=== PATIENT | male | born 1945 | race Caucasian/White ===

== ENCOUNTER 2020-11-26 09:20 | Day surgery (SDC) | payer MEDICARE, MEDICAID, SELFPAY ==
--- NOTE | 2020-11-23 11:13 | NURSING ---
spoke with Sabine, caregiver at [facility] [phone]. Sabine reported pt's med list. Sabine reported that pt takes meds with water. Sabine hs been instructed to give pt his propanolol and his norvasc in a.m. before surgery. Sabine has been instructed to fax pt's health info K[facility]IL[facility].
[2020-11-26] VITALS (8 sets, daily range): BP systolic 116–168; BP diastolic 48–64; PULSE 49–55; RESP 16–18; TEMP 36.1–36.4; O2SAT 96–99; BMI 23.5
[2020-11-26] MEDS: Lactated Ringers 1,000 ML 100 ML IV (10:29)
--- NOTE | 2020-11-26 11:11 | RAD_ITS ---
STUDY: X-RAY - LUMBAR SPINE REASON FOR EXAM: Male, 74 years old. MEDIAL BRANCH NERVE BLOCK, L3-S1,RIGHT TECHNIQUE: 4 fluoroscopic intraprocedural images view(s) of the lumbar spine were obtained. COMPARISON: None FINDINGS/ RAD/Lumbar Spine 2 or 3 Views IMPRESSION: Fluoroscopic intraprocedural images of a medial branch nerve block L3-S1 were performed. 4 different needle placements are visualized along the left lateral aspect of the lumbosacral spine. Osseous structures appear intact. Please see procedure report for full details. Electronically Signed: Rei Sexton MD at 20:34 EDT Tel , Service support ,
[2020-11-26] MEDS: Lidocaine 1% (5 ml sdv) 5 ML Vial (11:15)
[2020-11-26] MEDS: Bupivacaine 0.25% 30 ML Vial (11:15)
--- NOTE | 2020-11-26 16:47 | PCM.OPRPT ---
Report of Operation Date of Procedure: 11/26/20 Description of Surgical Findings:: PREOPERATIVE DIAGNOSIS: Lumbosacral spondylosis, lumbosacral degenerative disc disease, lumbar facet arthropathy POSTOPERATIVE DIAGNOSIS: Lumbosacral spondylosis, lumbosacral degenerative disc disease, lumbar facet arthropathy PROCEDURE PERFORMED: Right-sided diagnostic lumbar medial branch block, L3, L4, L5, and S1. ANESTHESIA: MAC. BLOOD LOSS: Minimal. COMPLICATIONS: None. DESCRIPTION OF PROCEDURE: History and physical of today was reviewed. Risks and benefits of the procedure were explained. The patient understood and agreed to proceed. Informed consent was obtained. IV inserted per routine protocol. The patient was taken to the operating room and placed in the prone position with a pillow positioned underneath the abdomen. The right side of her lower back was prepped and draped in a sterile fashion using iodine x3. Under fluoroscopy on oblique view, the L3 through S1 vertebral bodies were visualized. The skin and subcutaneous tissue was anesthetized with approximately 5 mL of 1% lidocaine using a 25-gauge regular needle. Under direct visualization with fluoroscopy, at approximately 25-degree angle starting on the right L3, ending on the right S1, passing through the L4 and L5, using a 22-gauge 3-1/2-inch spinal needle, the needle was advanced via the skin. The tip of the needle was maneuvered and directed towards the superior medial gutter of the transverse process at the vicinity of the medial branch. Once tip of the needle was in contact with the bone, the needle was pulled approximately 2 mm off the bone. After negative aspiration of blood or CSF and confirmation on AP as well as oblique view, a total of 8 mL of preservative-free 0.25% Marcaine was injected in divided doses between those four levels. The needles were then removed intact. The patient experienced no sign or symptoms of intrathecal or intravascular injection. The patient experienced no paresthesia. The procedure was completed without any apparent difficulty or any complications. The patient appeared to tolerate it well. ASSESSMENT AND PLAN: This is a 74-year-old male with lumbosacral spondylosis lumbosacral degenerative disc disease, lumbar facet arthropathy status post right-sided diagnostic medial branch block at L3-S1, patient will continue his current medications, patient will follow in approximately 1 week for reevaluation.
== END 2020-11-26 12:29 | disposition home or self-care (01) ==
LOC: SDC 09:27 → AC 10:06
PROVIDERS: Referring Provider Anesthesiology Pain Medicine; Visit Provider Anesthesiology Pain Medicine
PROC: 3E0T3BZ Introduction of Anesthetic Agent into Peripheral Nerves and Plexi, Percutaneous Approach (ICD-10-PCS; CPT 64493; principal; 2020-11-26 10:25)
DX: M47.817 Spondylosis without myelopathy or radiculopathy, lumbosacral region (principal); M51.37 Other intervertebral disc degeneration, lumbosacral region; M46.96 Unspecified inflammatory spondylopathy, lumbar region; G89.29 Other chronic pain; M19.90 Unspecified osteoarthritis, unspecified site; F41.9 Anxiety disorder, unspecified; Z99.3 Dependence on wheelchair; Z79.82 Long term (current) use of aspirin; Z79.899 Other long term (current) drug therapy; Z86.73 Personal history of transient ischemic attack (TIA), and cerebral infarction without residual deficits
CPT/HCPCS: 64493; 64494; 64495; 64483; 72100; J7120

== ENCOUNTER 2020-12-24 09:31 | Day surgery (SDC) | payer MEDICARE, MEDICAID, SELFPAY ==
[2020-11-26 10:11] VITALS: BMI 23.5
[2020-12-24] VITALS (10 sets, daily range): BP systolic 114–159; BP diastolic 52–61; PULSE 48–55; RESP 16; TEMP 36.2–36.6; O2SAT 97–100; BMI 22.6
--- NOTE | 2020-12-24 10:50 | RAD_ITS ---
PROCEDURE: Caudal block. DATE OF EXAMINATION: 12/24/2020 INDICATION: Male, 75 years old. Chronic low back pain. FLUOROSCOPY TIME (if supplied): (2 seconds) minutes/seconds. One image was obtained. RAD/Fluor Guidance for Spine Inj IMPRESSION: Intraoperative imaging provided for caudal block. Electronically Signed: Hari Lawton MD at 15:52 EDT , Service support ,
[2020-12-24] MEDS: Lactated Ringers 1,000 ML 100 ML IV (11:18)
[2020-12-24] MEDS: MethylPREDNISolone Acetate 80 MG/ML Vial (11:50)
[2020-12-24] MEDS: Lidocaine 1% (5 ml sdv) 5 ML Vial (11:50)
[2020-12-24] MEDS: Bupivacaine 0.5% PF 10 ML VIAL (11:50)
--- NOTE | 2020-12-24 12:27 | OP.PCM_ITS ---
Report of Operation Date of Procedure: 12/24/20 Pre-Operative Diagnosis: Lumbosacral radiculopathy, lumbosacral degenerative di sc disease, lumbosacral spinal stenosis Post-Operative Diagnosis: Lumbosacral radiculopathy, lumbosacral degenerative disc disease, lumbosacral spinal stenosis Surgery/Procedure Performed:: Caudal epidural steroid injection under fluoroscopic guidance Type of Anesthesia: MAC Estimated Blood Loss (mL): Minimal Description of Procedure: DESCRIPTION OF PROCEDURE: History and physical of today was reviewed. Risks and benefits of the procedure were explained. The patient understood and agreed to proceed. Informed consent was obtained. IV inserted per routine protocol. The patient was taken to the operating room and placed in the prone position with a pillow positioned underneath the abdomen. The lower back and tailbone area was prepped and draped in a sterile fashion using iodine x3. Under fluoroscopy guidance on a lateral view, the caudal space was identified. The skin and subcutaneous tissue was anesthetized with approximately 3 mL of 1% lidocaine using a 25-gauge regular needle. Under direct visualization with fluoroscopy, using a 22-gauge 3-1/2-inch spinal needle, the needle was advanced via the skin through the sacral hiatus. The tip of the needle was passed through the sacrococcygeal ligament and advanced to approximately S4 area. After negative aspiration of blood or CSF, a total of 3 mL of contrast was injected to confirm correct placement of the needle as well as cephalad spread. The spread was followed to approximately L5 area. After confirmation on AP as well as lateral view and repeated negative aspiration, a total of 15 mL of preservative-free 0.125% Marcaine with 80 mg of Depo-Medrol was injected easily. The needle was then removed intact. The patient experienced no sign or symptoms of intrathecal or intravascular injection. The patient experienced no paresthesia. The procedure was completed without any apparent difficulty or any complications. The patient appeared to tolerate it well. ASSESSMENT AND PLAN: This is a 75-year-old male with lumbosacral radiculopathy, lumbosacral degenerative disc disease, lumbosacral spinal stenosis status post caudal epidural steroid injection, patient will continue his current medications, patient will follow in approximately 2 weeks for reevaluation. Complications None
== END 2020-12-24 13:41 | disposition home or self-care (01) ==
LOC: SDC 09:36 → AC 10:14
PROVIDERS: Referring Provider Anesthesiology Pain Medicine; Visit Provider Anesthesiology Pain Medicine
PROC: 3E0S3BZ Introduction of Anesthetic Agent into Epidural Space, Percutaneous Approach (ICD-10-PCS; CPT 62282; principal; 2020-12-24 10:45)
DX: M51.17 Intervertebral disc disorders with radiculopathy, lumbosacral region (principal); M48.07 Spinal stenosis, lumbosacral region; G89.29 Other chronic pain; M19.90 Unspecified osteoarthritis, unspecified site; M81.0 Age-related osteoporosis without current pathological fracture; I10 Essential (primary) hypertension; F32.9 Major depressive disorder, single episode, unspecified; F41.9 Anxiety disorder, unspecified; F17.210 Nicotine dependence, cigarettes, uncomplicated; Z99.3 Dependence on wheelchair; Z79.82 Long term (current) use of aspirin; Z79.899 Other long term (current) drug therapy; Z86.73 Personal history of transient ischemic attack (TIA), and cerebral infarction without residual deficits
CPT/HCPCS: 01992; 62323; 64483; 77003; J7120; J3490

== ENCOUNTER 2021-03-01 17:01 | Inpatient (IN) | payer MEDICARE, MEDICAID, SELFPAY ==
[2021-03-01 17:03] VITALS: BP 143/73; PULSE 80; RESP 18; TEMP 36.7; O2SAT 99; BMI 30.3
--- NOTE | 2021-03-01 17:45 | RAD_ITS ---
STUDY: X-RAY - PELVIS AND LEFT HIP REASON FOR EXAM: Male, 75 years old. injury TECHNIQUE: 3 views of the pelvis and hip. COMPARISON: None. FINDINGS: There is nondisplaced left greater trochanter fracture. Femoral head and neck are intact and the hip is located. Remainder of the pelvis is normal. RAD/HIP, UNI W/ Pelvis 2-3 Views IMPRESSION: Acute left greater trochanter fracture. Electronically Signed: Olga Bond MD at 19:02 EDT Tel , Service support ,
[2021-03-01] MEDS: fentaNYL 100 MCG/2 ML Ampul 50 MCG IM (17:52)
--- NOTE | 2021-03-01 18:52 | EDS_ITS ---
HPI History of Present Illness Chief Complaint: Lower Extremity Injury Informant: patient Narrative Narrative: Patient presents by EMS from assisted living for increasing hip pain today. Mechanical fall 4 days ago after tripping over his cat. He landed on carpeted floor. No head injuries. Ambulates behind a wheelchair for years now. States today pain increased therefore called EMS. Denies any history of fractures. Denies any anticoagulation medications. [facility] Medical History (Updated 03/01/21 @ 22:13 by Junior Mock) Anxiety Arthritis Back pain Back pain due to injury CKD (chronic kidney disease) Delusional disorder Dementia Depression High cholesterol HTN (hypertension) Insomnia Muscle weakness Renal disease Smoker Stroke/cerebrovascular accident Uses wheelchair Home Medications acetaminophen 650 mg PO Q4H PRN 11/23/20 [History Last Taken 02/28/21 15:00] alendronate 70 mg PO TH 11/23/20 [History Last Taken 02/28/21] amlodipine [Norvasc] 10 mg PO DAILY 11/23/20 [History Last Taken 03/01/21] buspirone 5 mg PO BID 11/23/20 [History Last Taken 03/01/21] melatonin 10 mg PO QHS 11/23/20 [History Last Taken 02/28/21] paroxetine HCl 30 mg PO DAILY 11/23/20 [History Last Taken 03/01/21] propranolol 40 mg PO DAILY 11/23/20 [History Last Taken 03/01/21] rosuvastatin 20 mg PO DAILY 11/23/20 [History Last Taken 03/01/21] aspirin 81 mg PO DAILY 03/01/21 [History Last Taken 03/01/21] multivitamin [Daily-Jerry] 1 tab PO DAILY 03/01/21 [History Last Taken 03/01/21] Allergy/AdvReac Type Severity Reaction Status Date / Time No Known Allergies Allergy Verified 03/01/21 17:06 Family History (Updated 03/01/21 @ 20:[address] Clarissa Osborn MD) Mother Cancer Father Cancer Surgical History (Updated 03/01/21 @ 20:[address] Clarissa Osborn MD) S/P appendectomy Social History (Updated 03/01/21 @ 20:[address] Clarissa Osborn MD) housing: assisted living facility Smoking Status: Current every day smoker tobacco type: cigarettes Smoking packs per day: 1 Smoking cigarettes per day: 20.0 Years smoked: 58 Smoking pack-years: 58.00 alcohol intake: never substance use type: does not use ROS ROS ED Constitutional Constitutional ED: Denies chills, fever(s) or sweats Eyes Eyes: Denies change in vision ENT ENT ED: Denies dysphagia or sore throat Cardiovascular Cardiovascular: Denies chest pain, leg edema, palpitations or racing heartbeat Respiratory/Chest Respiratory/Chest: Denies cough, dyspnea or dyspnea on exertion Gastrointestinal Gastrointestinal: Denies abdominal pain, diarrhea, nausea or vomiting Genitourinary Genitourinary ED: Denies dysuria, hematuria or urinary frequency Musculoskeletal Musculoskeletal: Reports arthralgias; Denies back pain, extremity pain or neck pain Integumentary Denies rash or wounds Neurologic Neurologic: Denies headache(s), paresthesias or weakness EXAM Physical Exam Const Vital Signs: 03/01/21 17:03 03/01/21 19:08 Temperature 98.1 F Temperature Source Oral Pulse Rate 80 73 Respiratory Rate 18 16 Blood Pressure 143/73 H 148/73 H Blood Pressure Mean 96 98 Pulse Ox 99 98 Oxygen Delivery Method Room Air Room Air Positive unkempt General Appearance ED: unkempt and NAD HEENT Reports moist mucous membranes normocephalic and atraumatic Eyes PERRL, EOMs intact bilaterally and conjunctivae normal General Eye ED: Yes normal appearance of both eyes Neck no lymphadenopathy and supple General: Negative for tenderness Chest Wall Chest: Negative for tenderness Resp normal respiratory effort and normal air movement Effort and Inspection: symmetric chest movement; Negative for respiratory distress Cardio regular rate, regular rhythm and no murmurs Peripheral Pulses: pulses 2+ throughout GI normal to inspection, nondistended, normoactive bowel sounds and non-tender Palpation: Negative for guarding or rebound tenderness present Back/Spine no CVA tenderness and no thoracic nor lumbar tenderness Back/Spine Narrative: No midline neck back lumbar tenderness. Extremity Extremity Narrative: No shortening or rotation of the left lower extremity. Tender palpation lateral greater trochanteric. Skin intact. Mild pain with logroll. Neurovascular intact distally. General Extremety ED: Negative for edema or tenderness General Extremity: Negative for edema Neuro oriented x3 and no sensory deficits noted Sensorium / Orientation: awake and alert Psych Appearance: unkempt Skin no rashes or lesions noted and no wounds MDM MDM MDM Narrative Medical decision making narrative: Patient given IM fentanyl. there is no shortening or rotation. X-ray left hip pelvis obtained per radiology nondisplaced intertrochanteric fracture. Preop clearance labs EKG chest x-ray all obtained. White count returned at 15.9. Which add a UA. Additional pain medicines given. I spoke with orthopedics on-call Dr. Child, states he will see the patient in the morning. I spoke with hospitalist Dr. Osborn for admission. Shortly after admission, received call back from Dr. child partner who will see the patient request CT scan for further evaluation. States reviewed more concerning for greater trochanteric fracture. Discussed that he will evaluate the patient in the morning after CT scan. Lab Data Attestation: I reviewed the patient's lab results. Labs: Laboratory Results - last 24 hr 03/01/21 03/01/21 03/01/21 19:15 19:15 19:15 WBC 15.9 H RBC 4.74 Hgb 14.3 Hct 43.7 MCV 92.2 MCH 30.2 MCHC 32.7 RDW Std Deviation 45.9 H RDW Coeff of Cindy 13.4 Plt Count 290 MPV 10.4 Immature Gran % (Auto) 0.700 Neut % (Auto) 82.1 H Lymph % (Auto) 10.3 L Atkinson % (Auto) 6.4 Eos % (Auto) 0.1 Baso % (Auto) 0.4 Absolute Neuts (auto) 13.0 H Absolute Lymphs (auto) 1.64 Nucleated RBC % 0 PT INR APTT Sodium 139 Potassium 3.7 Chloride 104 Carbon Dioxide 23.0 Anion Gap 12 BUN 19 H Creatinine 1.61 H Estim Creat Clear Calc 28.42 Est GFR (MDRD) Af Amer 54 L Est GFR (MDRD) Non-Af 44 L BUN/Creatinine Ratio 11.8 Glucose 110 H Calcium 9.4 Magnesium Blood Type A POSITIVE Antibody Screen NEGATIVE 03/01/21 03/01/21 19:15 20:00 WBC RBC Hgb Hct MCV MCH MCHC RDW Std Deviation RDW Coeff of Cindy Plt Count MPV Immature Gran % (Auto) Neut % (Auto) Lymph % (Auto) Atkinson % (Auto) Eos % (Auto) Baso % (Auto) Absolute Neuts (auto) Absolute Lymphs (auto) Nucleated RBC % PT 13.5 INR 1.1 APTT 28.8 Sodium Potassium Chloride Carbon Dioxide Anion Gap BUN Creatinine Estim Creat Clear Calc Est GFR (MDRD) Af Amer Est GFR (MDRD) Non-Af BUN/Creatinine Ratio Glucose Calcium Magnesium 2.3 Blood Type Antibody Screen Radiography X-Ray: Left Hip, Read by ED Physician and Read by Radiologist Diagnostic Testing: Clinical Impression(s) from Imaging Studies Hip/Pelvis X-Ray 03/01/21 17:45 IMPRESSION: Acute left greater trochanter fracture. Electronically Signed: Olga Bond MD at 19:02 EDT Tel , Service support , Chest X-Ray 03/01/21 19:40 IMPRESSION: No acute findings in the chest. Electronically Signed: Jimy Dyson MD at 21:16 EDT Tel , Service support , EKG Initial EKG: Attestation: I personally reviewed and interpreted this EKG as follows: Comments: Sinus rate of 78, no ST or T wave changes. Discharge Plan Dx/Rx/DC Orders Clinical Impression: Closed fracture of left hip, Fall Disposition Disposition: Acute Care [facility] Discharge Date/Time: 03/01/21 21:28
[2021-03-01 19:08] VITALS: BP 148/73; PULSE 73; RESP 16; O2SAT 98
--- NOTE | 2021-03-01 19:40 | RAD_ITS ---
EXAM: XR Chest, 1 View CLINICAL INDICATION: 75 years old, Male; preop TECHNIQUE: Frontal view of the chest. This report was created using [employer] report generation technology. COMPARISON: None. FINDINGS: Lungs and pleural spaces: Blunting of the right costophrenic angle may be due to a small amount of fluid or pleural thickening. No pneumothorax. Heart: Unremarkable. Cardiac silhouette not enlarged. Mediastinum: Central airways and mediastinal contour are unremarkable. Bones/joints: Unremarkable. Soft tissues: Unremarkable. RAD/Chest 1 View (Portable) IMPRESSION: No acute findings in the chest. Electronically Signed: Jimy Dyson MD at 21:16 EDT Tel , Service support ,
--- NOTE | 2021-03-01 19:40 | EKG12_ITS ---
Test Reason : LE Blood Pressure : / mmHG Vent. Rate : 078 BPM Atrial Rate : 078 BPM P-R Int : 144 ms QRS Dur : 078 ms QT Int : 370 ms P-R-T Axes : 069 039 096 degrees QTc Int : 421 ms Normal sinus rhythm Nonspecific ST and T wave abnormality Abnormal ECG Confirmed by CATY ESPINOZA, KERVIN ([id number]), material expeditor FAUSTO CORBETT ([id number]) on 03/05/2021 10:42:06 AM Referred By: TL Confirmed By:KERVIN BYRNE MD
[2021-03-01 20:00] LABS: Absolute Lymphocyte Count 1.64 X10^3/uL (0.83-4.51); Basophil# 0.07 X10^3/uL; Basophil% 0.4 % (0-1); Eosinophil# 0.02 X10^3/uL; Eosinophils% 0.1 % (0-5); Hematocrit 43.7 % (40-54); Hemoglobin 14.3 g/dL (13.0-16.5); Lymphocyte # 1.64 X10^3/ul (0.83-4.51); Lymphocyte % 10.3 % (19-41); Mean Corp Hgb Conc 32.7 g/dL (32-36); Mean Corpuscular Hgb 30.2 pg (27.0-32.0); Mean Corpuscular Volume 92.2 fL (80-94); Mean Platelet Vol. 10.4 fl (6.2-12.0); Monocyte# 1.01 X10^3/uL; Monocyte% 6.4 % (0-10); NRBC Flagged by Analyzer 0 % (0-5); Neutrophil # 13.01 X10^3/uL (2.7-7.7); Neutrophil % 82.1 % (47-70); Platelet Count 290 K/mm3 (150-450); RBC Distribution Width CV 13.4 % (11.6-14.6); RBC Distribution Width SD 45.9 fl (35.1-43.9); Red Blood Count 4.74 M/mm3 (4.6-6.2); White Blood Count 15.9 K/mm3 (4.4-11.0)
--- NOTE | 2021-03-01 20:10 | HP.PCM.HOS_ITS ---
HPI - General General Date of Admission: 03/01/21 Date of Service: 03/01/21 Chief Complaint: Recent fall, worsening L hip pain, debility. HPI Narrative The patient is a 75 y/o M w/ PMHx: Obesity, CKD stage III unclear subtype, Dementia unclear type with unclear behavioral disturbance history, HTN, HLD, Chronic back pain, Anxiety and Depression, Hx CVA, Wheelchair dependent, Tobacco use who presents to the [facility] ED on 03/01/21 with history of unfortunate fall, tripped over his cat at assisted living ~ 4 days prior with worsening pain, d ebility with no head trauma or LOC, initially able to walk with wheelchair but having notable difficulty prompting ED evaluation. He report pain 10 out of 10. He notes even recently when he attempts to move in his sleep he has been awoken with severe pain pending on the movement he makes. Work-up in the ED included T 98.1, heart rate 80, BP 143/73, respiratory rate 18, 99% on room air, plain film of the left hip and pelvis with a nondisplaced left greater trochanteric fracture, CBC w/ WBC 15.9, Hgb 14.3, Plts 290 with L shift, coags will, BMP BUN/creatinine 19/1.61, glucose 110, UA pending upon evaluation, type and screen per ED. ED discussed case with Orthopedic surgeon Dr. Child and his group who will be seeing the patient requested CT of the extremity which is pending upon evaluation. [facility] Medical History (Updated 03/01/21 @ 20:[address] Clarissa Osborn MD) Anxiety Arthritis Back pain CKD (chronic kidney disease) Delusional disorder Dementia Depression HTN (hypertension) Insomnia Muscle weakness Smoker Stroke/cerebrovascular accident Uses wheelchair Home Medications acetaminophen 650 mg PO Q4H PRN 11/23/20 [History Last Taken 02/28/21 15:00] alendronate 70 mg PO TH 11/23/20 [History Last Taken 02/28/21] amlodipine [Norvasc] 10 mg PO DAILY 11/23/20 [History Last Taken 03/01/21] buspirone 5 mg PO BID 11/23/20 [History Last Taken 03/01/21] melatonin 10 mg PO QHS 11/23/20 [History Last Taken 02/28/21] paroxetine HCl 30 mg PO DAILY 11/23/20 [History Last Taken 03/01/21] propranolol 40 mg PO DAILY 11/23/20 [History Last Taken 03/01/21] rosuvastatin 20 mg PO DAILY 11/23/20 [History Last Taken 03/01/21] aspirin 81 mg PO DAILY 03/01/21 [History Last Taken 03/01/21] multivitamin [Daily-Jerry] 1 tab PO DAILY 03/01/21 [History Last Taken 03/01/21] Allergy/AdvReac Type Severity Reaction Status Date / Time No Known Allergies Allergy Verified 03/01/21 17:06 Family History (Updated 03/01/21 @ 20:[address] Clarissa Osborn MD) Mother Cancer Father Cancer Surgical History (Updated 03/01/21 @ 20:[address] Clarissa Osborn MD) S/P appendectomy Social History (Updated 03/01/21 @ 20:[address] Clarissa Osborn MD) housing: assisted living facility Smoking Status: Current every day smoker tobacco type: cigarettes Smoking packs per day: 1 Smoking cigarettes per day: 20.0 Years smoked: 58 Smoking pack-years: 58.00 alcohol intake: never substance use type: does not use ROS ROS Narrative Admission Review of Systems: CONSTITUTIONAL: No weight loss, fever, chills, + weakness or fatigue. HEENT: Eyes: No visual loss, blurred vision, double vision or yellow sclerae. Ears, Nose, Throat: No hearing loss, sneezing, congestion, runny nose or sore throat. SKIN: No rash or itching, lesions, wounds. CARDIOVASCULAR: No chest pain, chest pressure or chest discomfort, palpitations, edema, orthopnea, syncopal events. RESPIRATORY: No shortness of breath, cough or sputum, wheezing, hemoptysis. GASTROINTESTINAL: No anorexia, nausea, vomiting or diarrhea, abdominal pain, melena, BRBPR. GENITOURINARY: No dysuria, frequency, urgency or retention. NEUROLOGICAL: + Chronic UE tremors, chronic radiculopathy/claudication pain, No headache, dizziness, syncope, paralysis, ataxia, change in bowel or bladder control, seizure. MUSCULOSKELETAL: + muscle, back pain, joint pain or stiffness. HEMATOLOGIC: No anemia, bleeding or bruising. LYMPHATICS: No enlarged nodes. No history of splenectomy. PSYCHIATRIC: + history of depression or anxiety. ENDOCRINOLOGIC: No reports of sweating, cold or heat intolerance. No polyuria or polydipsia. ALLERGIES: No history of asthma, hives, eczema or rhinitis. Vital Signs Vital Signs Vital Signs: 03/01/21 17:03 03/01/21 19:08 Temperature 98.1 F Temperature Source Oral Pulse Rate 80 73 Respiratory Rate 18 16 Blood Pressure 143/73 H 148/73 H Blood Pressure Mean 96 98 Pulse Ox 99 98 Oxygen Delivery Method Room Air Room Air Weight Weight: 160 lb 7.944 oz Body Mass Index (BMI) 30.3 Physical Exam Narrative Physical Examination: General: Awake, alert, oriented x 3 including self, place and recent events, remains cooperative, laying in the ED bed, notes uncomfortable. Skin: Normal color, normal turgor, no icterus, no cyanosis. HEENT: AT/NC, EOMI, PERRLA, mildly dry MM, no carotid bruits or JVD noted. Lungs: Diminished, greater bases, moderate effort, no rales, ronchi or wheezing. Heart: Regular rate and rhythm; no gallop, rub audible. Abdomen: Soft, NTTP, ND, normal BS, no HSM. Extremities: No cyanosis, no clubbing, no edema. Peripheral pulses intact. Neurological: Patient awake, alert, oriented as noted, cognitive function appears likely baseline intact with reported in records underlying history of dementia; pupils equally reactive to light and accommodation, cranial nerves II- XII grossly normal, moving all 4 extremities except expected limitations given recent mechanical fall with left hip fracture, no focal deficits, strength accordingly severely globally decreased secondary to acute presentation. Psychiatric: Affect appears mildly uncomfortable otherwise normal, no acute evidence of depressive or anxiety feelings. Results Lab / Micro Data Result Diagrams: 03/01/21 19:15 03/01/21 19:15 Labs: Laboratory Results - last 24 hr 03/01/21 19:15: WBC 15.9 H, RBC 4.74, Hgb 14.3, Hct 43.7, MCV 92.2, MCH 30.2, MCHC 32.7, RDW Std Deviation 45.9 H, RDW Coeff of Cindy 13.4, Plt Count 290, MPV 10.4, Immature Gran % (Auto) 0.700, Neut % (Auto) 82.1 H, Lymph % (Auto) 10.3 L, [place] % (Auto) 6.4, Eos % (Auto) 0.1, Baso % (Auto) 0.4, Absolute Neuts (auto) 13.0 H, Absolute Lymphs (auto) 1.64, Nucleated RBC % 0 Radiology Impression Hip/Pelvis X-Ray 03/01/21 17:45 IMPRESSION: Acute left greater trochanter fracture. Electronically Signed: Olga Bond MD at 19:02 EDT Tel , Service support , Assessment & Plan Assessment/Plan (1) Closed fracture of left hip: QUALIFIERS: Encounter type: initial encounter Qualified Code(s): S72.002A - Fracture of unspecified part of neck of left femur, initial encounter for closed fracture (2) Fall: QUALIFIERS: Encounter type: initial encounter Qualified Code(s): W19.XXXA - Unspecified fall, initial encounter PLAN: The patient is a 75 y/o M w/ PMHx: Obesity, CKD stage III unclear subtype, Dementia unclear type with unclear behavioral disturbance history, HTN, HLD, Chronic back pain, Anxiety and Depression, Hx CVA, Wheelchair dependent, Tobacco use who presents to the [facility] ED on 03/01/21 with history of unfortunate fall, tripped over his cat at assisted living ~ 4 days prior with worsening pain, debility with no head trauma or LOC, initially able to walk with wheelchair but having notable difficulty prompting ED evaluation. 1. General debility, L hip pain s/p mechanical fall w/ nondisplaced left greater trochanteric fracture: Orthopedic surgery consulted from ED. Will admit to MS, maintain NPO after midnight, continue gentle IVFs, obtain TSH, Mag level, UA/UCx if appropriate, aranda placement as needed pre-operatively, monitor I/Os, frequent positioning, fall precautions, pain, anti-emetic regimen. PT/OT following operative intervention. CM consulted for discharge planning. NSQIP given underlying history of assisted living status and mild cognitive decline as well as routine pain management steroid injections although last 12/2020 and underlying history mildly above average risk. Pending EKG and CXR given tobacco use history without any reported COPD hx. If no marked findings or concerns would plan to transition to OR 03/01/21. 2. Dementia, unclear type with unclear behavioral disturbance history: Not on any specific regimen, complicates presentation, maintain on fall precautions, therapies and case management consulted as noted above. 3. Hypertension: Continue home regimen including propranolol, Norvasc with hold parameters as needed, PRN hydralazine. 4. Hyperlipidemia: We will continue patient home lovastatin regimen. 5. Anxiety and depression: Per records patient is following with the counseling center, will continue patient home BuSpar and paroxetine regimen. 6. Tobacco Abuse: Encouraged cessation, inpatient consultation per RT, NR if desired. 7. History CVA: Patient with L sided CVA history, continue aspirin, statin, hypertensive regimen as noted above with hold parameters as needed. 8. Chronic back pain with neurogenic claudication and lumbosacral radicu lopathy: Patient follows chronic pain management with routine epidural steroid injections, most recently noted 12/24/2020, encourage frequent positional changes, every 2 hours turns especially given limitations pending orthopedic surgery evaluation, fall precautions, therapies consulted following operative intervention as noted above. 9. Chronic Kidney Disease Stage III, unclear subtype: Admission BUN/Cr 19/1.61, disease reported in patient records, no clear baseline however, repeat CMP in AM. 10. DVT prophylaxis: SCDs, defer chemoprophylaxis for possible intervention, awaiting orthopedic surgery evaluation. 11. CODE status: Patient does not have healthcare power of supervisor sterile processing nor living will in place. His brother is his emergency contact. Discussed CODE status at length including difference between FULL code, DNR-CCA and DNR-CC status. Following discussions about the differences in these status, requested Full Code status. Advanced Care Planning Face to Face Time: 16 minutes. Charges/Coding Visit Charges Inpatient E&M: 99857 Init Hosp L3 Procedures Hospitalists Procedures: 52678 Advncd Care Plan 30 Min
[2021-03-01 20:12] LABS: Anion Gap 12 (5-15); BUN 19 mg/dL (7-18); BUN/Creat Ratio 11.8 RATIO (10-20); Calcium,Total 9.4 mg/dL (8.5-10.1); Chloride 104 mmol/L (98-107); Creatinine, Serum 1.61 mg/dL (0.70-1.30); EST Glomerular Filtration Rate 44 mL/min (>60); Est Glom Filt Rate - Afr Amer 54 mL/min (>60); Estimated Creatinine Clearance 28.42 ml/min; Glucose 110 mg/dL (74-106); Potassium 3.7 mmol/L (3.5-5.1); Sodium Level 139 mmol/L (136-145)
[2021-03-01] MEDS: fentaNYL 100 MCG/2 ML Ampul 50 MCG IV (20:13)
[2021-03-01 20:20] VITALS: BP 148/91; PULSE 72; RESP 18; TEMP 36.3; O2SAT 95
[2021-03-01 20:40] LABS: International Normalized Ratio 1.1; Prothrombin Time (Protime)PT. 13.5 SECONDS (11.7-14.9)
--- NOTE | 2021-03-01 20:40 | CT_ITS ---
EXAM: CT Pelvis Without Intravenous Contrast CLINICAL INDICATION: 75 years old, Male; fracture TECHNIQUE: Helically acquired images were obtained of the pelvis without intravenous contrast. This CT exam was performed using one or more of the following dose reduction techniques: automated exposure control, adjustment of the mA and/or kV according to patient size, and/or use of iterative reconstruction technique. This report was created using [employer] report [employer] Vantage technology. COMPARISON: None. FINDINGS: Bowel: Fecal retention in the rectum consistent with constipation and possible rectal impaction. Scattered diverticula in the colon. No diverticulitis. No bowel distention. Appendix: No evidence of acute appendicitis. Intraperitoneal space: Unremarkable. No ascites or other fluid collection. No free air. Bladder: Unremarkable. Reproductive: Unremarkable as visualized. No mass. Bones/joints: Displaced fracture of the left greater trochanter. No definite extension into the intertrochanteric region of the femur. No suspicious lytic or blastic abnormality. Soft tissues: Unremarkable. No pelvic wall hernia. Vasculature: Atherosclerotic disease. Lymph nodes: Unremarkable. No enlarged lymph nodes. CT/Pelvis without IV Contrast IMPRESSION: 1. Displaced fracture of the left greater trochanter. No definite extension into the intertrochanteric region of the femur. 2. Fecal retention in the rectum consistent with constipation and possible rectal impaction. Electronically Signed: Jimy Dyson MD at 21:33 EDT Tel , Service support ,
[2021-03-01 20:41] LABS: Partial Thromboplast Time 28.8 Seconds (24.1-36.2)
[2021-03-01 20:42] LABS: Magnesium 2.3 mg/dL (1.6-2.6)
--- NOTE | 2021-03-01 21:11 | ED.RN ---
prem hobbs made aware of admission
[2021-03-01 21:47] VITALS: BMI 30.3
[2021-03-01 22:14] VITALS: BP 153/73; PULSE 76; RESP 20; TEMP 36.6; O2SAT 97
[2021-03-01] MEDS: MELATONIN 10 MG TABLET PO (22:48)
[2021-03-01] MEDS: Morphine 2 MG/ML Syringe IV (22:49)
[2021-03-01] MEDS: busPIRone 5 MG Tablet PO (22:49)
[2021-03-01] MEDS: 0.9% Normal Saline 1,000 ML 100 ML IV (22:50)
[2021-03-01] MEDS: 0.9% Saline Lock 10 ML Syringe IV (22:53)
[2021-03-02] VITALS (14 sets, daily range): BP systolic 126–155; BP diastolic 42–78; PULSE 53–73; RESP 14–20; TEMP 36.2–37.1; O2SAT 91–100; BMI 29.7
[2021-03-02 00:04] LABS: Squamous Epithelial Cells - UA 0 SEEN /hpf (0-5)
[2021-03-02 00:05] LABS: Color, Urine Yellow (Yellow); Glucose, Dipstick Normal (Normal); Ketone-Dipstick 15 mg/dl (Negative); Leukocyte Esterase-Dipstick 25 /ul (Negative); Nitrite-Dipstick Negative (Negative); Occult Blood-Urine 10 /ul (Negative); Protein-Dipstick 100 mg/dl (Negative); Urine Bilirubin Dipstick Negative (Negative); Urine Clarity Clear (Clear); Urine Urobilinogen 1 mg/dl (Normal)
[2021-03-02 00:55] LABS: Bacteria RARE /hpf (None Seen); Mucous, Urine 1+ /hpf (<or=2+); Red Blood Cells-Urine 0-5 SEEN /hpf (0-5); White Blood Cells 5-10 SEEN /hpf (0-5)
[2021-03-02 00:56] LABS: Hyaline Cast 0-5 SEEN /lpf (0-5)
[2021-03-02] MEDS: BENZOCAINE/MENTHOL 1 LOZENGE MUCOUS MEM (01:50)
[2021-03-02] MEDS: Morphine 2 MG/ML Syringe IV ×4 (04:06→16:06)
--- NOTE | 2021-03-02 08:07 | CONS.ORTHO ---
HPI Consult Data Date of Consult: 03/02/21 HPI Narrative HPI Narrative: BERTRAND CONTE, is a 75 M who presents After mechanical fall at his assisted living facility where he resides. He states he tripped over his cat. Patient states the fall happened a week ago, however there are discrepancies in medical record that this may have happened approximately 4 days ago. He states he has been unable to ambulate and bear weight since the fall. He states he has not worked with a physical therapist yet. Denies fevers, chills, nausea or vomiting, chest pain or shortness of breath. Denies any other associated injury. Denies any presyncope or syncopal episodes related to the fall. Denies any antecedent hip or groin pain. [facility] Medical History (Updated 03/01/21 @ 22:13 by Junior Mock) Anxiety Arthritis Back pain Back pain due to injury CKD (chronic kidney disease) Delusional disorder Dementia Depression High cholesterol HTN (hypertension) Insomnia Muscle weakness Renal disease Smoker Stroke/cerebrovascular accident Uses wheelchair Home Medications acetaminophen 650 mg PO Q4H PRN 11/23/20 [History Last Taken 02/28/21 15:00] alendronate 70 mg PO TH 11/23/20 [History Last Taken 02/28/21] amlodipine [Norvasc] 10 mg PO DAILY 11/23/20 [History Last Taken 03/01/21] buspirone 5 mg PO BID 11/23/20 [History Last Taken 03/01/21] melatonin 10 mg PO QHS 11/23/20 [History Last Taken 02/28/21] paroxetine HCl 30 mg PO DAILY 11/23/20 [History Last Taken 03/01/21] propranolol 40 mg PO DAILY 11/23/20 [History Last Taken 03/01/21] rosuvastatin 20 mg PO DAILY 11/23/20 [History Last Taken 03/01/21] aspirin 81 mg PO DAILY 03/01/21 [History Last Taken 03/01/21] multivitamin [Daily-Jerry] 1 tab PO DAILY 03/01/21 [History Last Taken 03/01/21] Allergy/AdvReac Type Severity Reaction Status Date / Time No Known Allergies Allergy Verified 03/01/21 17:06 Family History (Updated 03/01/21 @ 20:[address] Clarissa Osborn MD) Mother Cancer Father Cancer Surgical History (Updated 03/01/21 @ 20:[address] Clarissa Osborn MD) S/P appendectomy Social History (Updated 03/01/21 @ 20:[address] Clarissa Osborn MD) housing: assisted living facility Smoking Status: Current every day smoker tobacco type: cigarettes Smoking packs per day: 1 Smoking cigarettes per day: 20.0 Years smoked: 58 Smoking pack-years: 58.00 alcohol intake: never substance use type: does not use ROS ROS Narrative 10 point review of systems obtained, negative unless otherwise noted in HPI Vital Signs Vital Signs Vital Signs: 03/01/21 17:03 03/01/21 19:08 03/01/21 20:20 Temperature 98.1 F 97.3 F L Temperature Source Oral Temporal Pulse Rate 80 73 72 Respiratory Rate 18 16 18 Respiratory Effort Respiratory Depth Respiratory Pattern Blood Pressure 143/73 H 148/73 H 148/91 H Blood Pressure Mean 96 98 110 Blood Pressure Source Blood Pressure Position Blood Pressure Location Pulse Ox 99 98 95 Oxygen Delivery Method Room Air Room Air Room Air 03/01/21 22:14 03/01/21 23:08 03/02/21 03:46 Temperature 98 F 98.4 F Temperature Source Oral Oral Pulse Rate 76 Respiratory Rate 20 H Respiratory Effort Normal Non-Labored Respiratory Depth Normal Respiratory Pattern Normal Blood Pressure 153/73 H Blood Pressure Mean 99 Blood Pressure Source Monitor Blood Pressure Position Semi-Fowlers Blood Pressure Location Left Arm Pulse Ox 97 Oxygen Delivery Method Room Air Room Air 03/02/21 05:40 03/02/21 05:44 Temperature 98.8 F Temperature Source Oral Pulse Rate 73 Respiratory Rate 20 H Respiratory Effort Normal Non-Labored Respiratory Depth Normal Respiratory Pattern Normal Blood Pressure 149/68 H Blood Pressure Mean 95 Blood Pressure Source Monitor Blood Pressure Position Semi-Fowlers Blood Pressure Location Right Arm Pulse Ox 98 Oxygen Delivery Method Room Air Room Air Weight Weight: 157 lb 3.033 oz Body Mass Index (BMI) 30.3 Physical Exam Narrative General -A&Ox3, NAD, appears stated age. Vital signs stable, afebrile. Respiratory -normal work of breathing, no intercostal retractions. CV -pulses regular, brisk capillary refill ?4 limbs. Abdomen-soft, nontender, nondistended. No guarding, rigidity, rebound tenderness. Musculoskeletal/neurologic -full range of motion nontender throughout bilateral upper extremities, right lower extremity with full sensation and strength in all dermatomes and myotomes. No midline cervical tenderness.Left lower extremity-no obvious deformity. Pain with logroll of the left lower extremity, positive heel strike, tolerates short arc range of motion of the hip. Tender to palpation along the greater trochanter. Nontender throughout the left knee femoral shaft, tibial shaft and left foot/ankle. Brisk capillary refill. Sensation intact light touch L3-S1 dermatomes. DF, PF, EHL intact. DP, PT 2+. Pelvis is stable, nontender. Skin is intact without lacerations, abrasions. No ecchymosis noted. Lab / Micro Data Result Diagrams: 03/01/21 19:15 03/01/21 19:15 Labs: Laboratory Results - last 24 hr 03/01/21 19:15: WBC 15.9 H, RBC 4.74, Hgb 14.3, Hct 43.7, MCV 92.2, MCH 30.2, MCHC 32.7, RDW Std Deviation 45.9 H, RDW Coeff of Cindy 13.4, Plt Count 290, MPV 10.4, Immature Gran % (Auto) 0.700, Neut % (Auto) 82.1 H, Lymph % (Auto) 10.3 L, [place] % (Auto) 6.4, Eos % (Auto) 0.1, Baso % (Auto) 0.4, Absolute Neuts (auto) 13.0 H, Absolute Lymphs (auto) 1.64, Nucleated RBC % 0 03/01/21 19:15: Sodium 139, Potassium 3.7, Chloride 104, Carbon Dioxide 23.0, Anion Gap 12, BUN 19 H, Creatinine 1.61 H, Estim Creat Clear Calc 28.42, Est GFR (MDRD) Af Amer 54 L, Est GFR (MDRD) Non-Af 44 L, BUN/Creatinine Ratio 11.8, Glucose 110 H, Calcium 9.4 03/01/21 19:15: Blood Type A POSITIVE, Antibody Screen NEGATIVE 03/01/21 19:15: Magnesium 2.3 03/01/21 20:00: PT 13.5, INR 1.1, APTT 28.8 03/01/21 23:55: Urine Color Yellow, Urine Clarity Clear, Urine pH 6.0, Ur Specific [place] 1.020, Urine Protein 100 H, Urine Glucose (UA) Normal, Urine Ketones 15 H, Urine Occult Blood 10 H, Urine Nitrite Negative, Urine Bilirubin Negative, Urine Urobilinogen 1 H, Ur Leukocyte Esterase 25 H, Urine RBC 0-5 SEEN, Urine WBC 5-10 SEEN, Ur Squamous Epith Cells 0 SEEN, Urine Bacteria RARE, Hyaline Casts 0-5 SEEN, Urine Mucus 1+ Micro: Microbiology 03/01/21 19:45 Nasal Secretion SARS-CoV-2 Antigen (Rapid) - Final Radiology Impression Hip/Pelvis X-Ray 03/01/21 17:45 IMPRESSION: Acute left greater trochanter fracture. Electronically Signed: Olga Bond MD at 19:02 EDT Tel , Service support , Chest X-Ray 03/01/21 19:40 IMPRESSION: No acute findings in the chest. Electronically Signed: Jimy Dyson MD at 21:16 EDT Tel , Service support , Pelvis CT 03/01/21 20:40 IMPRESSION: 1. Displaced fracture of the left greater trochanter. No definite extension into the intertrochanteric region of the femur. 2. Fecal retention in the rectum consistent with constipation and possible rectal impaction. Electronically Signed: Jimy Dyson MD at 21:33 EDT Tel , Service support , Assessment & Plan Assessment/Plan (1) Closed fracture of left hip: QUALIFIERS: Encounter type: initial encounter Qualified Code(s): S72.002A - Fracture of unspecified part of neck of left femur, initial encounter for closed fracture PLAN: Patient has x-ray and CT findings of a mildly displaced left greater trochanter avulsion fracture. Clinically, occult nondisplaced intertrochanteric fracture is suspected. MRI is needed definitive diagnosis, as a greater trochanteric avulsion fracture can be managed nonoperatively typically with restricting hip abduction and progressive weightbearing. We will obtain an MRI of the left hip without contrast this morning. I will keep the patient n.p.o. until I am able to review the study. If nondisplaced intertrochanteric fracture is identified, we would likely proceed with left femur cephalomedullary nail fixation. This was discussed at length with the patient and he expressed understanding of the above plan. All questions answered to patient satisfaction. I will follow-up after MRI today. Thank you the consultation.
--- NOTE | 2021-03-02 08:09 | MRI_ITS ---
STUDY: MRI LEFT HIP REASON FOR EXAM: Male, 75 years old. r/o occult intertroch fracture TECHNIQUE: Standardized fat and water weighted pulse sequences were obtained in all 3 orthogonal planes. COMPARISON: X-ray 03/01/2021, CT 03/01/2021 FINDINGS: Normal hip joint without articular joint space narrowing. Normal acetabulum. Normal labrum. Normal femoral head. Acute nondisplaced fracture of the intertrochanteric left femur with avulsion of the greater trochanter. Hemorrhage and fluid dissects superiorly along the plane between the gluteus minimus in the gluteus medius muscles. Normal gluteus minimus, medius and iliopsoas tendons and distal insertions. There is no trochanteric, iliopsoas or iliopectineal bursitis. Normal superior and inferior pubic rami. Normal pubic symphysis. Normal ischial tuberosity. Normal origin of the hamstring tendons. Normal visualized iliac wing, sacroiliac joint, and sacral ala. Normal visualized soft tissue structures of the pelvis. MRI/Lower Ext Joint Only (Routine) IMPRESSION: Acute nondisplaced fracture of the intertrochanteric left femur with avulsion of the greater trochanter. Electronically Signed: Bang Silverman MD at 11:57 EDT Tel , Service support ,
[2021-03-02 08:34] LABS: Absolute Lymphocyte Count 2.33 X10^3/uL (0.83-4.51); Absolute Neutrophil Count 6.9 X10^3/uL (2.0-7.7); Basophil# 0.04 X10^3/uL; Basophil% 0.4 % (0-1); Eosinophil# 0.08 X10^3/uL; Eosinophils% 0.8 % (0-5); Hematocrit 40.7 % (40-54); Hemoglobin 13.2 g/dL (13.0-16.5); Lymphocyte # 2.33 X10^3/ul (0.83-4.51); Lymphocyte % 21.9 % (19-41); Mean Corp Hgb Conc 32.4 g/dL (32-36); Mean Corpuscular Hgb 29.9 pg (27.0-32.0); Mean Corpuscular Volume 92.1 fL (80-94); Mean Platelet Vol. 9.8 fl (6.2-12.0); Monocyte# 1.25 X10^3/uL; Monocyte% 11.8 % (0-10); NRBC Flagged by Analyzer 0 % (0-5); Neutrophil # 6.89 X10^3/uL (2.7-7.7); Neutrophil % 64.8 % (47-70); Platelet Count 257 K/mm3 (150-450); RBC Distribution Width CV 13.5 % (11.6-14.6); RBC Distribution Width SD 46.1 fl (35.1-43.9); Red Blood Count 4.42 M/mm3 (4.6-6.2); White Blood Count 10.6 K/mm3 (4.4-11.0)
[2021-03-02] MEDS: 0.9% Normal Saline 1,000 ML 100 ML IV ×2 (08:51→20:03)
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
[2021-03-02] MEDS: Propranolol 40 MG Tablet PO (09:01)
[2021-03-02] MEDS: amLODIPine 10 MG Tablet PO (09:01)
[2021-03-02 09:03] LABS: ALB/GLOB Ratio 0.9 RATIO (0.9-2.4); AST(SGOT) 12 U/L (15-37); Alanine Aminotransfer ALT/SGPT 18 U/L (16-61); Albumin, Serum 3.2 g/dL (3.2-5.0); Alkaline Phosphatase 79 U/L (45-117); Anion Gap 8 (5-15); BUN 18 mg/dL (7-18); BUN/Creat Ratio 16.5 RATIO (10-20); Calcium,Total 8.4 mg/dL (8.5-10.1); Chloride 105 mmol/L (98-107); Creatinine, Serum 1.09 mg/dL (0.70-1.30); EST Glomerular Filtration Rate 70 mL/min (>60); Est Glom Filt Rate - Afr Amer 84 mL/min (>60); Estimated Creatinine Clearance 41.98 ml/min; Globulin 3.7 g/dL (2.2-4.2); Glucose 99 mg/dL (74-106); Potassium 3.4 mmol/L (3.5-5.1); Protein, Total 6.9 g/dL (6.4-8.2); Sodium Level 139 mmol/L (136-145); Thyroid Stim Hormone (TSH) 2.69 uIU/mL (0.358-3.74)
--- NOTE | 2021-03-02 09:07 | PCS.PANDOC ---
PANDEMIC DOCUMENTATION INITIATED: Date: 12/24/2020 Time: 190
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
--- NOTE | 2021-03-02 11:16 | NURSING ---
pt is back from mri
--- NOTE | 2021-03-02 11:27 | PCM.PN.HOSP ---
Documented by User: Linda Castillo NP, TAR DISTRIBUTOR OPERATOR-C 03/02/21 11:44 Subjective Subjective Patient seen and examined. Reports pain controlled at this time, recently received pain medication. Would like to return to assisted living facility at discharge. Awaiting MRI results. Objective Data Objective Data Vital Signs: Vital Signs Temp Pulse Resp BP Pulse Ox 98.8 F 73 20 H 149/68 H 95 03/02/21 05:40 03/02/21 05:40 03/02/21 05:40 03/02/21 05:40 03/02/21 07:50 Oxygen Delivery Method Room Air Weight: 157 lb 3.033 oz Body Mass Index (BMI) 30.3 Intake & Output: Intake and Output for Last 24 Hours 02/28/21 03/01/21 03/02/21 23:59 23:59 23:59 Intake Total 1876.67 / 1876.67 Output Total 550 / 550 Balance 1326.67 / 1326.67 Lab / Micro Data Result Diagrams: 03/02/21 08:18 03/02/21 08:18 Labs: Laboratory Results - last 24 hr 03/01/21 19:15: WBC 15.9 H, RBC 4.74, Hgb 14.3, Hct 43.7, MCV 92.2, MCH 30.2, MCHC 32.7, RDW Std Deviation 45.9 H, RDW Coeff of Cindy 13.4, Plt Count 290, MPV 10.4, Immature Gran % (Auto) 0.700, Neut % (Auto) 82.1 H, Lymph % (Auto) 10.3 L, [place] % (Auto) 6.4, Eos % (Auto) 0.1, Baso % (Auto) 0.4, Absolute Neuts (auto) 13.0 H, Absolute Lymphs (auto) 1.64, Nucleated RBC % 0 03/01/21 19:15: Sodium 139, Potassium 3.7, Chloride 104, Carbon Dioxide 23.0, Anion Gap 12, BUN 19 H, Creatinine 1.61 H, Estim Creat Clear Calc 28.42, Est GFR (MDRD) Af Amer 54 L, Est GFR (MDRD) Non-Af 44 L, BUN/Creatinine Ratio 11.8, Glucose 110 H, Calcium 9.4 03/01/21 19:15: Blood Type A POSITIVE, Antibody Screen NEGATIVE 03/01/21 19:15: Magnesium 2.3 03/01/21 20:00: PT 13.5, INR 1.1, APTT 28.8 03/01/21 23:55: Urine Color Yellow, Urine Clarity Clear, Urine pH 6.0, Ur Specific [place] 1.020, Urine Protein 100 H, Urine Glucose (UA) Normal, Urine Ketones 15 H, Urine Occult Blood 10 H, Urine Nitrite Negative, Urine Bilirubin Negative, Urine Urobilinogen 1 H, Ur Leukocyte Esterase 25 H, Urine RBC 0-5 SEEN, Urine WBC 5-10 SEEN, Ur Squamous Epith Cells 0 SEEN, Urine Bacteria RARE, Hyaline Casts 0-5 SEEN, Urine Mucus 1+ 03/02/21 08:18: WBC 10.6, RBC 4.42 L, Hgb 13.2, Hct 40.7, MCV 92.1, MCH 29.9, MCHC 32.4, RDW Std Deviation 46.1 H, RDW Coeff of Cindy 13.5, Plt Count 257, MPV 9.8, Immature Gran % (Auto) 0.300, Neut % (Auto) 64.8, Lymph % (Auto) 21.9, [place] % (Auto) 11.8 H, Eos % (Auto) 0.8, Baso % (Auto) 0.4, Absolute Neuts (auto) 6.9, Absolute Lymphs (auto) 2.33, Nucleated RBC % 0 03/02/21 08:18: Sodium 139, Potassium 3.4 L, Chloride 105, Carbon Dioxide 26.0, Anion Gap 8, BUN 18, Creatinine 1.09, Estim Creat Clear Calc 41.98, Est GFR (MDRD) Af Amer 84, Est GFR (MDRD) Non-Af 70, BUN/Creatinine Ratio 16.5, Glucose 99, Calcium 8.4 L, Total Bilirubin 0.50, AST 12 L, ALT 18, Alkaline Phosphatase 79, Total Protein 6.9, Albumin 3.2, Globulin 3.7, Albumin/Globulin Ratio 0.9, TSH 2.69 Micro: Microbiology 03/01/21 19:45 Nasal Secretion SARS-CoV-2 Antigen (Rapid) - Final Radiography Diagnostic Testing: Radiology Impression Hip/Pelvis X-Ray 03/01/21 17:45 IMPRESSION: Acute left greater trochanter fracture. Electronically Signed: Olga Bond MD at 19:02 EDT Tel , Service support , Chest X-Ray 03/01/21 19:40 IMPRESSION: No acute findings in the chest. Electronically Signed: Jimy Dyson MD at 21:16 EDT Tel , Service support , Pelvis CT 03/01/21 20:40 IMPRESSION: 1. Displaced fracture of the left greater trochanter. No definite extension into the intertrochanteric region of the femur. 2. Fecal retention in the rectum consistent with constipation and possible rectal impaction. Electronically Signed: Jimy Dyson MD at 21:33 EDT Tel , Service support , Orbit X-Ray 03/02/21 08:55 IMPRESSION: No demonstrated metallic orbital foreign body. The patient is cleared for an MRI examination. Electronically Signed: Bang Silverman MD at 9:38 EDT Tel , Service support , Physical Exam Const alert, oriented x3 and no apparent distress Orientation / Consciousness: awake, oriented to person, oriented to place and oriented to time HEENT normocephalic and moist oral mucous membranes Eyes PERRL, EOMs intact bilaterally and conjunctivae normal Neck no lymphadenopathy Resp normal respiratory effort and clear to auscultation bilaterally Cardio regular rate, regular rhythm and no murmurs Peripheral Pulses: pulses 2+ throughout GI normal to inspection, nondistended, normoactive bowel sounds, non-tender and non-distended Extremity normal to inspection Skin no rashes or lesions noted Lesions: no lesions Rashes: no rashes Trauma: no lacerations or abrasions Neuro CN's II-XII intact bilaterally, no focal motor deficits, no sensory deficits noted and deep tendon reflexes 2+ bilaterally Psych mental status grossly normal and affect normal Assessment & Plan Assessment/Plan (1) Closed fracture of left hip: QUALIFIERS: Encounter type: initial encounter Qualified Code(s): S72.002A - Fracture of unspecified part of neck of left femur, initial encounter for closed fracture PLAN: 1. Left hip pain status post mechanical fall with mildly displaced left greater trochanter avulsion fracture versus intertrochanter fracture-MRI pending for further evaluation. Management per orthopedic medicine. N.p.o. pending read of MRI. PT/OT. As needed pain regimen. If OR is necessary, okay to proceed from a medical standpoint. 2. Acute kidney injury-resolved. 3. Hypertension-stable, continue propanolol, Norvasc. 4. Hyperlipidemia-continue statin. 5. Anxiety/depression-on BuSpar, paroxetine. 6. Tobacco dependence-encouraged cessation. 7. History of CVA-on aspirin, statin. 8. Chronic back pain-follows with pain management. 9. Dementia, unknown behavioral disturbance history-resides in assisted living facility. DVT prophylaxis-SCDs This patient was seen by SHAYNE Lamb under the supervision of Dr. Anderson. Documented by User: Dr. Johsnon Anderson MD 03/02/21 12:48 Objective Data Lab / Micro Data Result Diagrams: 03/02/21 08:18 03/02/21 08:18 Charges/Coding Addendum Addendum: Dr. Anderson: I personally reviewed the chart and examined the patient, and agree with the above findings. 75-year-old male presents from assisted living after mechanical fall. He was complaining of left hip pain, CT scan was inconclusive as to whether or not there is an intertrochanteric fracture versus an avulsion fracture so the lower extremity MRI was obtained today by orthopedic surgery, MRI demonstrates an acute nondisplaced fracture of the intertrochanteric left femur with an avulsion of the greater trochanter. Appreciate Ortho's assistance in this case. Visit Charges Inpatient E&M: 86616 Subs Hosp L2
[2021-03-02] MEDS: Potassium Chloride Oral Tablet 20 MEQ PO (11:50)
[2021-03-02] MEDS: 0.9% Saline Lock 10 ML Syringe IV ×5 (11:50→23:49)
--- NOTE | 2021-03-02 13:08 | RAD_ITS ---
HISTORY: PAIN, FX, ORIF EXAMINATION/TECHNIQUE: XR Hip Unilateral with Pelvis when performed; 1 View: COMPARISON: Left hip series 03/01/21 FINDINGS: Multiple fluoroscopic spot films performed intraoperatively show ORIF intertrochanteric fracture left femur. RAD/Hip 1 view with Pelvis IMPRESSION: ORIF intertrochanteric fracture left femur. at 1908 Reported and signed by: Geoff Moreland MD Electronically Signed: Geoff Moreland MD at 19:07 EDT Tel , Service support ,
[2021-03-02] MEDS: Cefazolin 2 GM in 0.9% Normal Saline 100 ML IV ×2 (14:00→22:43)
--- NOTE | 2021-03-02 14:45 | PCM.OPRPT ---
Problems Associated Problem List Diagnoses (1) Closed fracture of left hip: Report of Operation Date of Procedure: 03/02/21 Description of Surgical Findings:: Preoperative diagnosis: Left nondisplaced intertrochanteric femur fracture Postoperative diagnosis: Left nondisplaced intertrochanteric femur fracture Procedure: Treatment of intertrochanteric hip fracture with intramedullary nail left femur Surgeon: Johnson Tovar DO Anesthesia: General endotracheal Anesthesiologist: Dr. Ferrell Complications: None Drains: None Estimated blood loss: 150 cc Urinary output: Per anesthesia record IV fluids: Per anesthesia record Specimens: None Surgical implants: [place] Gamma3 Cephalomedullary Nail 125 degree 11 mm x 180 mm left, 10.5 mm x 110 mm lag screw, Interlocking screws 5 mm x 37.5 mm Surgical indications: This is a 75-year-old female who sustained a ground-level fall at his assisted living facility several days ago after he tripped over his cat and landed on his left side. He was unable to bear weight for several days. X-rays in the [facility] emergency department 03/01/2021 revealed a minimally displaced greater trochanteric avulsion fracture. CT was obtained that evening to evaluate for occult intertrochanteric fracture. CT was benign for intertrochanteric fracture. I recommended a MRI the following morning today 03/02/2021 after examining the patient, as he had findings consistent with a intertrochanteric femur fracture, suspected occult. MRI was obtained this morning and confirmed the diagnosis of occult intertrochanteric femur fracture. I recommended operative intervention in the form of left femur cephalomedullary nail fixation. I discussed the procedure in detail with the patient. Including its risks, benefits, and alternatives. The risks of the surgery included bleeding, infection, loss of life or limb, malunion, nonunion, damage to vital structures, neurovascular injury, failure of orthopedic hardware, need for additional surgery, persistent pain or disability, risk of anesthesia. Patient expressed understanding of these risks and wished to proceed with surgery. Blood consent was also obtained. Description of procedure: Patient was seen in preoperative holding area. He was identified by name, medical record number, date of . The operative extremity was marked with a surgical marker. We confirmed informed consent with the patient and all questions were answered to his satisfaction. Patient was brought to the operative suite, general anesthesia was administered by the anesthesia staff. Endotracheal tube placed. After securing the tube, patient was transferred to a fracture table with all bony prominences being well-padded. A perineal post was placed to secure the patient on the table. We then applied a ski boot which was well-padded to the operative extremity. The well leg was dropped into extension and secured to the axial post of the fracture table with a pillow and [place]. The arms were brought across patient's chest with a blanket on his chest. We then performed a closed reduction maneuver with mostly traction and some internal rotation. Fluoroscopic images were obtained. The fracture maintained its nondisplaced nature and alignment. We then prepped and draped the left lower extremity in normal, sterile orthopedic fashion. A timeout was performed with all parties in attendance in agreement with the side, site, and operation be performed. 2 g Ancef was administered prior to incision. No concerns were voiced and we elected to proceed. I first planned my incision approximately 3 fingerbreadths proximal to the tip of the greater trochanter. Skin was incised sharply with a 10 blade scalpel. Incision was carried deep through the IT band laterally. The greater trochanter was then able to be palpated digitally. I then placed a threaded guidewire just medial to the tip of the greater trochanter and in the anterior third of it on the lateral. Opening reamer was then placed over top of the guidewire after placement was confirmed on C arm. Reduction was again confirmed. We selected the nail to be 18 cm x 11 mm diameter. Reamers were removed. Nail was assembled on the back table. We placed it by hand through the reaming hole and impacted to an appropriate depth. Rotation was confirmed on the lateral. Drill sleeve was placed through the targeting guide. We drilled the pin for the lag screw at an appropriate position and depth, tip to apex distance less than 25 mm on AP and lateral combined. Depth gauge was used to measure the length of the screw, 110 mm. We then used the cannulated drill to drill to an appropriate depth. Drill was removed, drill pin left in place. Lag screw was placed over top of the drill pin and tightened to an appropriate depth. Setscrew was then placed and tightened, and then turned back a quarter turn to allow for sliding. Instruments were removed as well as the outrigger for the nail. Final fluoroscopic images were obtained at the hip. Utilizing the targeting guide, skin was first marked, incised with a 10 blade scalpel, incision carried deep to the fascia through the skin, subcutaneous tissue and lateral IT band to the level of the bone to place a static interlocking screw. I drilled bicortically through the guide and measured the length of the screw to be 37.5 mm. Drill was removed and the screw was placed by hand with excellent purchase. Final fluoroscopic images were obtained confirming anatomic reduction and appropriate hardware positioning and sizes. We irrigated the wounds copiously with normal saline solution. Hemostasis was excellent at this point. We then closed the deeper layers, IT band with 0 Vicryl. Intradermal buried stitches of 2-0 Vicryl were utilized and skin finally reapproximated with skin ambrocio. Sterile compression dressing of Xeroform, 4 x 4's, and Tegaderm was applied. Patient tolerated procedure well without complication. He was transferred back to her hospital bed and subsequently to PACU in stable condition. Intraoperative medications: 2 g Ancef IV Post Operative Plan: Weightbearing: Weightbearing as tolerated left lower extremity with a walker Antibiotics: Ancef 2 g x 3 doses postoperatively, 1 dose given preoperatively DVT Prophylaxis: 40 mg subcu Lovenox to start tomorrow morning, JACOB Trejo, early mobilization Hawkins: Per primary, recommending discontinuation tomorrow morning 03/03/2021 Dressing: Dry sterile dressing changes daily and as needed for saturation X-Rays: 2 weeks postop in the office Pain Medication: Kismet Rx upon discharge Follow-up: 2-3 weeks post-operatively with me in the office
--- NOTE | 2021-03-02 15:24 | SUR.PHASEI ---
AT 1445, PATIENT ARRIVED IN PACU WITH LMA IN PLACE AND ON ROOM AIR. PATIENT HAD SPONTANEOUS RESPIRATIONS OF 12 BREATHS/MIN. DR. Timo ROPER AT BEDSIDE.
--- NOTE | 2021-03-02 15:25 | SUR.PHASEI ---
AT APPROXIMATELY 1500, DR Timo ROPER REMOVED LMA IN INTACT. PATIENT IS AWAKE AND BREATHING 16 BREATHS/MIN. ON ROOM AIR
--- NOTE | 2021-03-02 15:47 | CM.ED ---
Addendum entered by Janine Parks 03/02/21 20:27: Patient is from [facility]. Plan: To be determined based on patient's Pt/Ot evaluation Janine LOVETT Original Note: HEMALATHA Note Referral Source: CM Referral Reason: Discharge Planning CM advised patient is form an assisted living facility. Patient had an MRI. Possible SNF or return to Assisted Living. HEMALATHA reviewed charting and noted patient is in surgery. Plan to be determined Plan: To be determined Janine LOVETT
[2021-03-02] MEDS: Acetaminophen 325 MG Tablet 650 MG PO (17:10)
[2021-03-02] MEDS: oxyCODONE 5 MG Tablet PO ×2 (17:11→17:54)
[2021-03-02] MEDS: HYDROmorphone 1 MG/ML Syringe IV (17:55)
[2021-03-02] MEDS: MELATONIN 10 MG TABLET PO (22:43)
[2021-03-02] MEDS: busPIRone 5 MG Tablet PO (22:43)
[2021-03-02] MEDS: Atorvastatin Calcium 40 MG Tablet PO (22:44)
[2021-03-02] MEDS: Ondansetron 4 MG/2 ML Vial IV (23:45)
[2021-03-03] VITALS (8 sets, daily range): BP systolic 113–130; BP diastolic 44–61; PULSE 56–72; RESP 16–20; TEMP 36.6–37.3; O2SAT 89–99
[2021-03-03] MEDS: Enoxaparin 40 MG/0.4 ML Syringe SC (05:45)
[2021-03-03] MEDS: Cefazolin 2 GM in 0.9% Normal Saline 100 ML IV ×2 (05:45→13:31)
[2021-03-03] MEDS: Acetaminophen 325 MG Tablet 650 MG PO (05:57)
[2021-03-03 07:28] LABS: Anion Gap 9 (5-15); BUN 19 mg/dL (7-18); BUN/Creat Ratio 17.4 RATIO (10-20); Calcium,Total 7.8 mg/dL (8.5-10.1); Chloride 105 mmol/L (98-107); Creatinine, Serum 1.09 mg/dL (0.70-1.30); EST Glomerular Filtration Rate 70 mL/min (>60); Est Glom Filt Rate - Afr Amer 84 mL/min (>60); Estimated Creatinine Clearance 41.98 ml/min; Glucose 111 mg/dL (74-106); Sodium Level 138 mmol/L (136-145)
[2021-03-03] MEDS: 0.9% Normal Saline 1,000 ML 100 ML IV ×2 (08:12→18:30)
[2021-03-03] MEDS: Aspirin E.C. 81 MG Tablet PO (08:13)
[2021-03-03] MEDS: Multivitamins,Therapeutic Tablet 1 TABLET PO (08:13)
[2021-03-03] MEDS: busPIRone 5 MG Tablet PO ×2 (08:13→17:34)
[2021-03-03] MEDS: Propranolol 40 MG Tablet PO (08:15)
[2021-03-03] MEDS: PARoxetine 10 MG Tablet 30 MG PO (08:16)
[2021-03-03] MEDS: amLODIPine 10 MG Tablet PO (08:16)
[2021-03-03] MEDS: oxyCODONE 5 MG Tablet PO ×3 (08:28→17:38)
--- NOTE | 2021-03-03 09:21 | PCM.PN.ORT ---
Subjective Subjective Patient seen and examined at bedside this morning. He is up to chair already. States he has ambulated around the room with a walker. Still notes pain but states it has improved since surgery. States current pain regimen is able to take the edge off. Denies fevers, chills, nausea or vomiting, chest pain or shortness of breath. Wishes to go back to his assisted living facility if possible. Objective Data Objective Data Vital Signs: Vital Signs Temp Pulse Resp BP Pulse Ox 97.9 F 68 18 128/58 H 99 03/03/21 08:30 03/03/21 08:30 03/03/21 08:30 03/03/21 08:30 03/03/21 08:30 Oxygen Flow Rate (L/min) 2 Oxygen Delivery Method Room Air Weight: 162 lb 4.163 oz Body Mass Index (BMI) 29.7 Intake & Output: Intake and Output for Last 24 Hours 03/01/21 03/02/21 03/03/21 23:59 23:59 23:59 Intake Total 4100.00 / 4100.00 891.67 / 891.67 Output Total 1475 / 1475 250 / 250 Balance 2625.00 / 2625.00 641.67 / 641.67 Lab / Micro Data Result Diagrams: 03/02/21 08:18 03/03/21 06:59 Labs: Laboratory Results - last 24 hr 03/03/21 06:59: Sodium 138, Potassium 4.0, Chloride 105, Carbon Dioxide 24.0, Anion Gap 9, BUN 19 H, Creatinine 1.09, Estim Creat Clear Calc 41.98, Est GFR (MDRD) Af Amer 84, Est GFR (MDRD) Non-Af 70, BUN/Creatinine Ratio 17.4, Glucose 111 H, Calcium 7.8 L Micro: Microbiology 03/02/21 13:05 Nasal Secretion SARS-CoV-2 Antigen (Rapid) - Final 03/01/21 19:45 Nasal Secretion SARS-CoV-2 Antigen (Rapid) - Final Radiography Diagnostic Testing: Radiology Impression Lower Extremity MRI 03/02/21 08:09 IMPRESSION: Acute nondisplaced fracture of the intertrochanteric left femur with avulsion of the greater trochanter. Electronically Signed: Bang Silverman MD at 11:57 EDT Tel , Service support , Orbit X-Ray 03/02/21 08:55 IMPRESSION: No demonstrated metallic orbital foreign body. The patient is cleared for an MRI examination. Electronically Signed: Bang Silverman MD at 9:38 EDT Tel , Service support , Hip/Pelvis X-Ray 03/02/21 13:08 IMPRESSION: ORIF intertrochanteric fracture left femur. at 1908 Reported and signed by: Geoff Moreland MD Electronically Signed: Geoff Moreland MD at 19:07 EDT Tel , Service support , Physical Exam Narrative General - A&Ox3, NAD. VSS/AF Left lower extremity -incisional dressing C/D/I other than focal area of dried sanguinous drainage on the distalmost incision. SILT Sural, Saphenous, SPN, DPN, Tibial N. distributions. DP, PT 2+. BCR. DF, PF, EHL 5/5. No calf TTP. Assessment & Plan Assessment/Plan (1) Closed fracture of left hip: QUALIFIERS: Encounter type: initial encounter Qualified Code(s): S72.002A - Fracture of unspecified part of neck of left femur, initial encounter for closed fracture PLAN: POD#1 s/p left femur CMN - Pain control - Medicine following for medical management - PT/OT - WBAT LLE - DVT PPX -Lovenox 40 mg subcutaneous daily x 28 days - Case management - D/C planning -Patient doing very well from my perspective. Continue therapies. Disposition per therapy and primary. I will sign off. Patient is okay to shower 03/05/2021. Okay to leave wounds open to air if no drainage after shower. Percocet prescription provided in the chart. Recommend Lovenox 40 mg subcutaneous daily x28 days upon discharge. Follow-up with me in my office in 2-3 weeks for staple removal and x-rays. Please do not hesitate to call if any questions or concerns arise.
--- NOTE | 2021-03-03 11:18 | PN.HOSP_ITS ---
Documented by User: Linda Castillo NP, GOVERNMENT PROFESSOR-C 03/03/21 11:24 Subjective Subjective Patient seen and examined. Pain currently controlled however reports intermittent increased pain. States SNF was discussed with him and he states he would like to return to assisted living. He does report that he is requiring more assistance than normal. Objective Data Objective Data Vital Signs: Vital Signs Temp Pulse Resp BP Pulse Ox 97.9 F 68 18 128/58 H 99 03/03/21 08:30 03/03/21 08:30 03/03/21 08:30 03/03/21 08:30 03/03/21 08:30 Oxygen Flow Rate (L/min) 2 Oxygen Delivery Method Room Air Weight: 162 lb 4.163 oz Body Mass Index (BMI) 29.7 Intake & Output: Intake and Output for Last 24 Hours 03/01/21 03/02/21 03/03/21 23:59 23:59 23:59 Intake Total 4100.00 / 4100.00 891.67 / 891.67 Output Total 1475 / 1475 250 / 250 Balance 2625.00 / 2625.00 641.67 / 641.67 Lab / Micro Data Result Diagrams: 03/02/21 08:18 03/03/21 06:59 Labs: Laboratory Results - last 24 hr 03/03/21 06:59: Sodium 138, Potassium 4.0, Chloride 105, Carbon Dioxide 24.0, Anion Gap 9, BUN 19 H, Creatinine 1.09, Estim Creat Clear Calc 41.98, Est GFR (MDRD) Af Amer 84, Est GFR (MDRD) Non-Af 70, BUN/Creatinine Ratio 17.4, Glucose 111 H, Calcium 7.8 L Micro: Microbiology 03/02/21 13:05 Nasal Secretion SARS-CoV-2 Antigen (Rapid) - Final 03/01/21 19:45 Nasal Secretion SARS-CoV-2 Antigen (Rapid) - Final Radiography Diagnostic Testing: Radiology Impression Lower Extremity MRI 03/02/21 08:09 IMPRESSION: Acute nondisplaced fracture of the intertrochanteric left femur with avulsion of the greater trochanter. Electronically Signed: Bang Silverman MD at 11:57 EDT Tel , Service support , Hip/Pelvis X-Ray 03/02/21 13:08 IMPRESSION: ORIF intertrochanteric fracture left femur. at 1908 Reported and signed by: Geoff Moreland MD Electronically Signed: Geoff Moreland MD at 19:07 EDT Tel , Service support , Physical Exam Const alert, oriented x3 and no apparent distress Orientation / Consciousness: awake, oriented to person, oriented to place and oriented to time HEENT normocephalic and moist oral mucous membranes Eyes PERRL, EOMs intact bilaterally and conjunctivae normal Neck no lymphadenopathy Resp normal respiratory effort and clear to auscultation bilaterally Cardio regular rate, regular rhythm and no murmurs Peripheral Pulses: pulses 2+ throughout GI normal to inspection, nondistended, normoactive bowel sounds, non-tender and non-distended Extremity normal to inspection Skin no rashes or lesions noted Skin Narrative: Postop dressing intact. Lesions: no lesions Rashes: no rashes Trauma: no lacerations or abrasions Neuro CN's II-XII intact bilaterally, no focal motor deficits, no sensory deficits noted and deep tendon reflexes 2+ bilaterally Psych mental status grossly normal and affect normal Assessment & Plan Assessment/Plan (1) Closed fracture of left hip: QUALIFIERS: Encounter type: initial encounter Qualified Code(s): S72.002A - Fracture of unspecified part of neck of left femur, initial encounter for closed fracture PLAN: 1. Traumatic left nondisplaced intertrochanteric femur fracture- status post intramedullary nail left femur 03/02/2021. PT/OT. As needed pain regimen. Lovenox for DVT prophylaxis for 4 weeks per surgery recommendations. PT recommending TCU however patient would like to return to assisted living with therapies. Await further case management, social work assessment for discharge needs. 2. Acute kidney injury-resolved. 3. Hypertension-stable, continue propanolol, Norvasc. 4. Hyperlipidemia-continue statin. 5. Anxiety/depression-on BuSpar, paroxetine. 6. Tobacco dependence-encouraged cessation. 7. History of CVA-on aspirin, statin. 8. Chronic back pain-follows with pain management. 9. Dementia, unknown behavioral disturbance history-resides in assisted living facility. DVT prophylaxis-SCDs Discharge plan: Patient request to return to assisted living, PT recommending TCU/rehab. Will at minimum need therapies at assisted living facility, await case management/social work reassessment. This patient was seen by SHAYNE Lamb under the supervision of Dr. Anderson. Documented by User: Dr. Johnson Anderson MD 03/03/21 11:33 Objective Data Lab / Micro Data Result Diagrams: 03/02/21 08:18 03/03/21 06:59 Charges/Coding Addendum Addendum: Dr. Anderson: I personally reviewed the chart and examined the patient, and agree with the above findings. 75-year-old male presents from assisted living after mechanical fall. He was complaining of left hip pain, CT scan was inconclusive as to whether or not there is an intertrochanteric fracture versus an avulsion fracture so the lower extremity MRI was obtained today by orthopedic surgery, MRI demonstrates an acute nondisplaced fracture of the intertrochanteric left femur with an avulsion of the greater trochanter. Appreciate Ortho's assistance in this case. 03/03/2021: Status post operative repair his nondisplaced intertrochanteric femur fracture yesterday.PT is recommending TCU placement on discharge however he states that he can go back to the assisted living, apparently he had a bad experience with her previous skilled nursing and now believes with all nursing homes are the same. He will likely not do well if he goes back to the assisted living with just limited therapy and will attempt to persuade him into skilled nursing placement. Visit Charges Inpatient E&M: 19111 Subs Hosp L2
[2021-03-03] MEDS: Morphine 2 MG/ML Syringe IV (13:36)
[2021-03-03] MEDS: Atorvastatin Calcium 40 MG Tablet PO (21:34)
[2021-03-03] MEDS: MELATONIN 10 MG TABLET PO (21:34)
[2021-03-04 01:46] VITALS: BP 119/40; PULSE 64; RESP 20; TEMP 37.1; O2SAT 92
[2021-03-04] MEDS: 0.9% Normal Saline 1,000 ML 100 ML IV (04:24)
[2021-03-04] MEDS: Enoxaparin 40 MG/0.4 ML Syringe SC (06:00)
[2021-03-04 07:52] VITALS: BP 134/55; PULSE 65; RESP 18; TEMP 37.1; O2SAT 94
[2021-03-04 07:57] VITALS: PULSE 70
[2021-03-04] MEDS: PARoxetine 10 MG Tablet 30 MG PO (08:07)
[2021-03-04] MEDS: amLODIPine 10 MG Tablet PO (08:07)
[2021-03-04] MEDS: Aspirin E.C. 81 MG Tablet PO (08:08)
[2021-03-04] MEDS: Multivitamins,Therapeutic Tablet 1 TABLET PO (08:08)
[2021-03-04] MEDS: busPIRone 5 MG Tablet PO (08:09)
[2021-03-04] MEDS: Acetaminophen 325 MG Tablet 650 MG PO (10:01)
[2021-03-04] MEDS: Propranolol 40 MG Tablet PO (10:01)
--- NOTE | 2021-03-04 11:30 | CASEMGMT ---
Social Work Assessment SW updated that PT/OT are recommending SNF at discharge. SW in to speak with pt. SW introduced self and role at [facility]. Pt is alert and orientated to person, time, somewhat place (pt knew he was at a hospital but didn't know he was in [place]). Personal Status: Living Arrangements: Pt states that he lives at [facility] on the 5th floor. Pt states there is an elevator he can take to get to the 5th floor. Pt states he lives there with his cat. DME: Wheelchair, pt states he is trying to get an electric wheelchair. PCP: Pt states he has no PCP, per pt's facesheet her see's Sabra Simmons. Pharmacy: Pt states his Medications get delivered. ADLs: Pt states he was previously independent with his ADLs. Pt states at this time he is not driving as his license but pt is wanting to get his license back and start driving again. Community Resources: Per contact list, pt has CM Carola Broussard. SW asked pt about his CM. Pt states I don't have one, they are trying to get me one. SW asked pt if he knew a Carola Aarti and pt states he's never met her. HHC: Pt states he has had HHC in the past, unable to recall name of Agency SNF: Pt states I don't think so, then states he has been to [facility] in [place], [place] SW spoke with pt about recommendation of SNF. Pt states that he is returning to [facility] at discharge, states that he needs to get back to his cat. SW spoke with pt about safety concerns and that recommendation is SNF. Pt again adamant that he is returning to [facility]. SW informed pt that HHC could be arranged but an RN would only be out once a week and therapy would be 2-3x a week. Pt states he is fine with that. SW informed pt that this worker will need to call [facility] to confirm they can accept pt back because they may say pt needs more assistance than what they can provide. Pt states that this worker will need to speak to Hope at [facility] as that is who is in charge. HEMALATHA placed a call to [facility] and spoke with DARCI Regalado. SW updated Sabine that pt is adamant about returning to [facility] and asked if that is possible. Sabine states she would need to check with their DON Hope. HEMALATHA faxed clinicals to [facility]. Plan: TBD. Return to [facility] vs SNF Diana Schneider IMPLEMENTATION SPECIALIST PAYROLL, BILINGUAL HR GENERALIST
[2021-03-04] MEDS: oxyCODONE 5 MG Tablet PO (12:25)
--- NOTE | 2021-03-04 13:46 | PCM.DC.SUM ---
Documented by User: Linda Castillo OFFICE 365 CONSULTANT, OFFICE 365 CONSULTANT-C 03/04/21 14:22 Providers Date of Admission: 03/01/21 Date of Discharge: 03/04/21 Primary Care Physician: MANDI GORDON Consultations 03/01/21 21:38 Consult: Orthopedics Routine Consulting Provider: Fortunato Child Reason for Consult: L hip fx, fall EMERGENT Consult: No MD Notified: Yes Date Notified: 03/01/21 Time Notified: 20:16 Method of Notification: called per ED. Reason For Visit: LEFT HIP FRACTURE, FALL Diagnosis Discharge Diagnosis (1) Closed fracture of left hip: Status: Acute Code(s): S72.002A - Fracture of unspecified part of neck of left femur, initial encounter for closed fracture Qualifiers: Encounter type: initial encounter Qualified Code(s): S72.002A - Fracture of unspecified part of neck of left femur, initial encounter for closed fracture Medications at Discharge Home Medications acetaminophen 650 mg PO Q4H PRN 11/23/20 alendronate 70 mg PO TH 11/23/20 amlodipine [Norvasc] 10 mg PO DAILY 11/23/20 buspirone 5 mg PO BID 11/23/20 melatonin 10 mg PO QHS 11/23/20 paroxetine HCl 30 mg PO DAILY 11/23/20 propranolol 40 mg PO DAILY 11/23/20 rosuvastatin 20 mg PO DAILY 11/23/20 aspirin 81 mg PO DAILY 03/01/21 multivitamin [Daily-Jerry] 1 tab PO DAILY 03/01/21 enoxaparin 40 mg SUBCUT DAILY@0600 28 Days #11.2 ml 03/03/21 oxycodone-acetaminophen [Percocet] 1 tab PO Q6H PRN 7 Days #28 tab 03/03/21 Hospital Course Operations - (Treatment of intertrochanteric hip fracture with intramedullary nail left femur) Procedures None Summary of Care Provided Minutes Spent on Discharge: 35 Hospital Course: Patient is a 75-year-old male admitted 03/01/2021 due to recent fall, left hip pain. 1. Traumatic left nondisplaced intertrochanteric femur fracture-status post intramedullary nail left femur 03/02/2021. As needed pain regimen. Lovenox for DVT prophylaxis for 4 weeks per surgery recommendations. PT recommending TCU/SNF. Okay to shower 03/05/2021. Follow-up with Ortho 2 to 3 weeks for staple removal and x-rays. 2. Acute kidney injury-resolved. 3. Hypertension-stable, continue propanolol, Norvasc. 4. Hyperlipidemia-continue statin. 5. Anxiety/depression-on BuSpar, paroxetine. 6. Tobacco dependence-encouraged cessation. 7. History of CVA-on aspirin, statin. 8. Chronic back pain-follows with pain management. 9. Dementia, unknown behavioral disturbance history-resides in assisted living facility. Physical Exam Const alert, oriented x3 and no apparent distress Orientation / Consciousness: awake, oriented to person, oriented to place and oriented to time HEENT normocephalic and moist oral mucous membranes Eyes PERRL, EOMs intact bilaterally and conjunctivae normal Neck no lymphadenopathy Resp normal respiratory effort and clear to auscultation bilaterally Cardio regular rate, regular rhythm and no murmurs Peripheral Pulses: pulses 2+ throughout GI normal to inspection, nondistended, normoactive bowel sounds, non-tender and non-distended Extremity normal to inspection Skin no rashes or lesions noted Skin Narrative: Postop dressing intact. Lesions: no lesions Rashes: no rashes Trauma: no lacerations or abrasions Neuro CN's II-XII intact bilaterally, no focal motor deficits, no sensory deficits noted and deep tendon reflexes 2+ bilaterally Psych mental status grossly normal and affect normal Patient seen and examined prior to discharge. Physical assessment as noted above. Patient is stable for discharge with follow up recommendations as noted above. This patient was seen by SHAYNE Lamb under the supervision of Dr. Anderson. Weight / BMI Weight Weight: 168 lb 13.985 oz Body Mass Index (BMI) 29.7 ABG / Lab / Microbiology Data Result Diagrams: 03/02/21 08:18 03/03/21 06:59 Microbiology: Microbiology 03/02/21 13:05 Nasal Secretion SARS-CoV-2 Antigen (Rapid) - Final 03/01/21 19:45 Nasal Secretion SARS-CoV-2 Antigen (Rapid) - Final Meaningful Use Info Meaningful Use Diagnoses (Choose all that apply): None applicable Discharge Plan Admission Admit Date/Time: 03/01/21 20:12 Primary Reason for Your Visit: Left nondisplaced intertrochanteric femur fracture Attending Provider: Johnson Anderson Consulting Providers: Fortunato Child Instructions Additional Instructions / Restrictions: Okay to shower 03/05/2021 Weightbearing as tolerated left lower extremity Apply dry sterile dressing changes after shower if drainage is present, otherwise okay to leave open to air Discharge Orders/Prescriptions Prescriptions: New oxycodone-acetaminophen [Percocet] 5-325 mg tablet 1 tab PO Q6H PRN (Reason: pain) 7 Days Qty: 28 RF: 0 enoxaparin 40 mg/0.4 mL Syringe 40 mg subcut DAILY@0600 28 Days Qty: 11.2 RF: 0 Continued buspirone 5 mg Tablet 5 mg PO BID RF: 0 acetaminophen 325 mg Tablet 650 mg PO Q4H PRN (Reason: Pain) RF: 0 alendronate 70 mg Tablet 70 mg PO TH RF: 0 propranolol 40 mg Tablet 40 mg PO DAILY RF: 0 amlodipine [Norvasc] 10 mg Tablet 10 mg PO DAILY RF: 0 paroxetine HCl 30 mg Tablet 30 mg PO DAILY RF: 0 rosuvastatin 20 mg Tablet 20 mg PO DAILY RF: 0 melatonin 10 mg Tablet 10 mg PO QHS RF: 0 multivitamin [Daily-Jerry] Tablet 1 tab PO DAILY RF: 0 aspirin 81 mg tablet,delayed release (DR/EC) 81 mg PO DAILY RF: 0 Referrals / Follow Up: MANDI GORDON [Other] - In 1 Week MANDI GORDON [Other] Johnson Tovar DO [STAFF PHYSICIAN] - 03/18/21 Disposition Disposition (needs filled in before D/C Order can be placed): Inpatient Rehab Unit/Facility Documented by User: Dr. Johnson Anderson MD 03/04/21 15:48 Providers Date of Admission: 03/01/21 Reason For Visit: LEFT HIP FRACTURE, FALL Medications at Discharge Home Medications acetaminophen 650 mg PO Q4H PRN 11/23/20 alendronate 70 mg PO TH 11/23/20 amlodipine [Norvasc] 10 mg PO DAILY 11/23/20 buspirone 5 mg PO BID 11/23/20 melatonin 10 mg PO QHS 11/23/20 paroxetine HCl 30 mg PO DAILY 11/23/20 propranolol 40 mg PO DAILY 11/23/20 rosuvastatin 20 mg PO DAILY 11/23/20 aspirin 81 mg PO DAILY 03/01/21 multivitamin [Daily-Jerry] 1 tab PO DAILY 03/01/21 enoxaparin 40 mg SUBCUT DAILY@0600 28 Days #11.2 ml 03/03/21 oxycodone-acetaminophen [Percocet] 1 tab PO Q6H PRN 7 Days #28 tab 03/03/21 ABG / Lab / Microbiology Data Result Diagrams: 03/02/21 08:18 03/03/21 06:59 Discharge Plan Admission Admit Date/Time: 03/01/21 20:12 Primary Reason for Your Visit: Left nondisplaced intertrochanteric femur fracture Attending Provider: Johnson Anderson Consulting Providers: Fortunato Child Instructions Additional Instructions / Restrictions: Okay to shower 03/05/2021 Weightbearing as tolerated left lower extremity Apply dry sterile dressing changes after shower if drainage is present, otherwise okay to leave open to air Discharge Orders/Prescriptions Prescriptions: New oxycodone-acetaminophen [Percocet] 5-325 mg tablet 1 tab PO Q6H PRN (Reason: pain) 7 Days Qty: 28 RF: 0 enoxaparin 40 mg/0.4 mL Syringe 40 mg subcut DAILY@0600 28 Days Qty: 11.2 RF: 0 Continued buspirone 5 mg Tablet 5 mg PO BID RF: 0 acetaminophen 325 mg Tablet 650 mg PO Q4H PRN (Reason: Pain) RF: 0 alendronate 70 mg Tablet 70 mg PO TH RF: 0 propranolol 40 mg Tablet 40 mg PO DAILY RF: 0 amlodipine [Norvasc] 10 mg Tablet 10 mg PO DAILY RF: 0 paroxetine HCl 30 mg Tablet 30 mg PO DAILY RF: 0 rosuvastatin 20 mg Tablet 20 mg PO DAILY RF: 0 melatonin 10 mg Tablet 10 mg PO QHS RF: 0 multivitamin [Daily-Jerry] Tablet 1 tab PO DAILY RF: 0 aspirin 81 mg tablet,delayed release (DR/EC) 81 mg PO DAILY RF: 0 Referrals / Follow Up: MANDI GORDON [Other] - In 1 Week MANDI GORDON [Other] Johnson Tovar DO [STAFF PHYSICIAN] - 03/18/21 Disposition Disposition (needs filled in before D/C Order can be placed): Inpatient Rehab Unit/Facility Charges/Coding Addendum Addendum: Dr. Anderson: I personally reviewed the chart and examined the patient, and agree with the above findings. 75-year-old male presents from assisted living after mechanical fall. He was complaining of left hip pain, CT scan was inconclusive as to whether or not there is an intertrochanteric fracture versus an avulsion fracture so the lower extremity MRI was obtained today by orthopedic surgery, MRI demonstrates an acute nondisplaced fracture of the intertrochanteric left femur with an avulsion of the greater trochanter. Appreciate Ortho's assistance in this case. 03/03/2021: Status post operative repair his nondisplaced intertrochanteric femur fracture yesterday.PT is recommending TCU placement on discharge however he states that he can go back to the assisted living, apparently he had a bad experience with her previous long term and now believes with all nursing homes are the same. He will likely not do well if he goes back to the assisted living with just limited therapy and will attempt to persuade him into long term placement. 03/04/2021: Doing well from his operative repair. He recognizes that he is likely going need to go to a long term because his assisted living cannot assist him to the level that he needs even with home PT. He has agreed to go to the rehab unit here in the fourth floor and they have agreed to take him today. I discussed with him plan for discharge and he expressed understanding of the risk benefits of going to rehab and would like to go to rehab today. Visit Charges Inpatient E&M: [id number] Disch Hosp
[2021-03-04 14:35] VITALS: BP 133/56; PULSE 58; RESP 18; TEMP 36.9; O2SAT 94
[2021-03-04 14:46] VITALS: PULSE 70
--- NOTE | 2021-03-04 15:14 | PCM.DC ---
Discharge Instructions Diet Discharge Diet: Low fat / Low cholesterol Activity Discharge Activity: Return to Normal Activity Dressing / Incision Call your doctor if you observe: Shortness of breath, Dizziness and Chest pain Follow Up Care Test Results: Test results from this visit will be discussed in further detail at your follow-up appointment, if applicable. Discharge Plan Admission Admit Date/Time: 03/01/21 20:12 Primary Reason for Your Visit: Left nondisplaced intertrochanteric femur fracture Attending Provider: Johnson Anderson Consulting Providers: Fortunato Child Instructions Additional Instructions / Restrictions: Okay to shower 03/05/2021 Weightbearing as tolerated left lower extremity Apply dry sterile dressing changes after shower if drainage is present, otherwise okay to leave open to air Discharge Orders/Prescriptions Prescriptions: New oxycodone-acetaminophen [Percocet] 5-325 mg tablet 1 tab PO Q6H PRN (Reason: pain) 7 Days Qty: 28 RF: 0 enoxaparin 40 mg/0.4 mL Syringe 40 mg subcut DAILY@0600 28 Days Qty: 11.2 RF: 0 Continued buspirone 5 mg Tablet 5 mg PO BID RF: 0 acetaminophen 325 mg Tablet 650 mg PO Q4H PRN (Reason: Pain) RF: 0 alendronate 70 mg Tablet 70 mg PO TH RF: 0 propranolol 40 mg Tablet 40 mg PO DAILY RF: 0 amlodipine [Norvasc] 10 mg Tablet 10 mg PO DAILY RF: 0 paroxetine HCl 30 mg Tablet 30 mg PO DAILY RF: 0 rosuvastatin 20 mg Tablet 20 mg PO DAILY RF: 0 melatonin 10 mg Tablet 10 mg PO QHS RF: 0 multivitamin [Daily-Jerry] Tablet 1 tab PO DAILY RF: 0 aspirin 81 mg tablet,delayed release (DR/EC) 81 mg PO DAILY RF: 0 Referrals / Follow Up: MANDI GORDON [Other] - In 1 Week MANDI GORDON [Other] Johnson Tovar DO [STAFF PHYSICIAN] - 03/18/21 Disposition Disposition (needs filled in before D/C Order can be placed): Inpatient Rehab Unit/Facility
--- NOTE | 2021-03-04 15:22 | PCM.PN.HOSP ---
Documented by User: Linda Castillo NP, SUPERVISOR METAL CANS-C 03/04/21 15:25 Subjective Subjective Patient seen and examined. Now agreeable to rehab unit, awaiting acceptance. Pain currently controlled. Objective Data Objective Data Vital Signs: Vital Signs Temp Pulse Resp BP Pulse Ox 98.5 F 70 18 133/56 H 94 03/04/21 14:35 03/04/21 14:46 03/04/21 14:35 03/04/21 14:35 03/04/21 14:35 Oxygen Flow Rate (L/min) 2 Oxygen Delivery Method Room Air Weight: 168 lb 13.985 oz Body Mass Index (BMI) 29.7 Intake & Output: Intake and Output for Last 24 Hours 03/02/21 03/03/21 03/04/21 23:59 23:59 23:59 Intake Total 4100.00 / 4100.00 2101.67 / 2101.67 1989 Output Total 1475 / 1475 700 / 700 Balance 2625.00 / 2625.00 1401.67 / 1401.67 1989 Lab / Micro Data Result Diagrams: 03/02/21 08:18 03/03/21 06:59 Micro: Microbiology 03/02/21 13:05 Nasal Secretion SARS-CoV-2 Antigen (Rapid) - Final 03/01/21 19:45 Nasal Secretion SARS-CoV-2 Antigen (Rapid) - Final Physical Exam Const alert, oriented x3 and no apparent distress Orientation / Consciousness: awake, oriented to person, oriented to place and oriented to time HEENT normocephalic and moist oral mucous membranes Eyes PERRL, EOMs intact bilaterally and conjunctivae normal Neck no lymphadenopathy Resp normal respiratory effort and clear to auscultation bilaterally Cardio regular rate, regular rhythm and no murmurs Peripheral Pulses: pulses 2+ throughout GI normal to inspection, nondistended, normoactive bowel sounds, non-tender and non-distended Extremity normal to inspection Skin no rashes or lesions noted Lesions: no lesions Rashes: no rashes Trauma: no lacerations or abrasions Neuro CN's II-XII intact bilaterally, no focal motor deficits, no sensory deficits noted and deep tendon reflexes 2+ bilaterally Psych mental status grossly normal and affect normal Assessment & Plan Assessment/Plan (1) Closed fracture of left hip: QUALIFIERS: Encounter type: initial encounter Qualified Code(s): S72.002A - Fracture of unspecified part of neck of left femur, initial encounter for closed fracture PLAN: 1. Traumatic left nondisplaced intertrochanteric femur fracture-status post intramedullary nail left femur 03/02/2021. As needed pain regimen. Lovenox for DVT prophylaxis for 4 weeks per surgery recommendations. PT recommending TCU/SNF. Okay to shower 03/05/2021. Follow-up with Ortho 2 to 3 weeks for staple removal and x-rays. 2. Acute kidney injury-resolved. 3. Hypertension-stable, continue propanolol, Norvasc. 4. Hyperlipidemia-continue statin. 5. Anxiety/depression-on BuSpar, paroxetine. 6. Tobacco dependence-encouraged cessation. 7. History of CVA-on aspirin, statin. 8. Chronic back pain-follows with pain management. 9. Dementia, unknown behavioral disturbance history-resides in assisted living facility. DVT prophylaxis-Lovenox sc Discharge planning: Rehab/SNF pending acceptance. This patient was seen by SHAYNE Lamb under the supervision of Dr. Anderson. Documented by User: Dr. Johnson Anderson MD 03/04/21 15:46 Objective Data Lab / Micro Data Result Diagrams: 03/02/21 08:18 03/03/21 06:59
--- NOTE | 2021-03-04 15:30 | CASEMGMT ---
Social Work Note SW hasn't heard anything back from [facility]. SW placed another call to [facility] and spoke with Hope. Hope states she was under the impression that recommendation is SNF and pt needs to go to a SNF. SW informed Hope that pt is not agreeable to SNF. Hope asked to speak to pt. SW placed Hope on speaker phone and provided phone to pt. SW remained in room. Hope spoke with pt about recommendation of SNF and that pt needs to go to SNF. Hope states that pt's apartment will still be there when pt is done with SNF and that pt's cat will be taken care of by Chere[facility]. SW spoke with pt and Hope about [facility] as pt has qualifying diagnosis. After much discussion, pt is agreeable to [facility]. During conversation pt stated I wish I never woke up today and he wanted to go play in traffic. SW out in hallway and continued to speak with Hope. Hope states pt with history of dementia. SW asked Hope if she knew of any history of suicidal thoughts/plans/ideations. Hope states that pt will make a comment about playing in traffic. Hope states that pt will usually come talk to her and then he is better. Hope states that pt is linked up with [facility]. Hope states that pt is on medication for his Depression and Dementia and when pt takes his medications he is good. SW informed Hope that this worker is trying to get pt to [facility]. Hope states understanding. HEMALATHA placed a call to [place] with . physician to review referral. is able to accept pt today. SW back in to speak with pt regarding his comment of not wanting to wake up and pt wanting to play in traffic. Pt states that he is just lonely and sad. Pt states that all his family have and he has limited support. Pt states that he really wants to get back to [place]. SW asked pt about History of Suicidal thoughts/plans/ideations. Pt denied any history of suicidal thoughts/plans/ideations. Pt denied any current suicidal thoughts/plans/ideations. Pt states that he was supposed to go to [facility] but states that he missed the appointment. Pt states that he plans on rescheduling his appointment with [facility]. SW offered much support to pt through conversation. SW informed pt that he will be discharged to today. Pt states understanding. HEMALATHA placed a call to pt's LEANA Broussard and left message that pt discharged to [facility] today. Plan: [facility] today Diana Schneider REWORK OPERATOR, DEAF TEACHER
--- NOTE | 2021-03-04 16:05 | NURSING ---
Report called to Marisol BEJARANO in Rehab, she said to leave the IV in.
== END 2021-03-04 16:25 | DRG 481 ==
LOC: ED 20:10 → MS3 20:18
PROVIDERS: Nurse Practitioner Family; Student in an Organized Health Care Education/Training Program; Admitting Provider Family Medicine; Emergency Provider Emergency Medicine; Visit Provider Family Medicine
PROC: 0QS706Z Reposition Left Upper Femur with Intramedullary Internal Fixation Device, Open Approach (ICD-10-PCS; CPT 27245; principal; 2021-03-02 14:00)
DX: S72.145A Nondisplaced intertrochanteric fracture of left femur, initial encounter for closed fracture (principal); N17.9 Acute kidney failure, unspecified; S72.115A Nondisplaced fracture of greater trochanter of left femur, initial encounter for closed fracture; W01.0XXA Fall on same level from slipping, tripping and stumbling without subsequent striking against object, initial encounter; Y93.9 Activity, unspecified; Y92.099 Unspecified place in other non-institutional residence as the place of occurrence of the external cause; Y99.8 Other external cause status; I12.9 Hypertensive chronic kidney disease with stage 1 through stage 4 chronic kidney disease, or unspecified chronic kidney disease; N18.2 Chronic kidney disease, stage 2 (mild); E78.5 Hyperlipidemia, unspecified; F32.A Depression, unspecified; F41.9 Anxiety disorder, unspecified; M54.17 Radiculopathy, lumbosacral region; G89.29 Other chronic pain; F03.90 Unspecified dementia, unspecified severity, without behavioral disturbance, psychotic disturbance, mood disturbance, and anxiety; F17.210 Nicotine dependence, cigarettes, uncomplicated; E66.9 Obesity, unspecified; Z68.30 Body mass index [BMI] 30.0-30.9, adult; Z99.3 Dependence on wheelchair; Z79.82 Long term (current) use of aspirin; Z79.83 Long term (current) use of bisphosphonates; Z79.899 Other long term (current) drug therapy; Z86.73 Personal history of transient ischemic attack (TIA), and cerebral infarction without residual deficits
CPT/HCPCS: 36415; 70030; 71045; 72192; 73501; 73502; 73721; 76000; 80048; 80053; 81001; 83735; 84443; 85025; 85610; 85730; 86850; 86900; 86901; 87426; 93005; 97162; 97165; 97530; 97535; 99251; 99285; C1713; J7030; A4216; G0463; J2405

== ENCOUNTER 2021-03-04 16:40 | Inpatient (IN) | payer MEDICARE, MEDICAID, SELFPAY ==
[2021-03-04 16:46] VITALS: BP 138/59; PULSE 18; RESP 57; TEMP 36.7; O2SAT 92
[2021-03-04 17:21] VITALS: BMI 22.3
[2021-03-04 19:00] VITALS: O2SAT 99
[2021-03-04 19:41] VITALS: BP 154/50; PULSE 64; RESP 18; TEMP 36.8; O2SAT 94
[2021-03-04] MEDS: MELATONIN 3 MG TABLET PO (21:28)
[2021-03-04] MEDS: busPIRone 5 MG Tablet PO (21:28)
[2021-03-04] MEDS: Acetaminophen 500 MG Tablet 1000 MG PO (21:28)
[2021-03-04] MEDS: Senna/Docusate Sodium 1 Tablet 2 TABLET PO (21:28)
[2021-03-04] MEDS: Atorvastatin Calcium 40 MG Tablet PO (21:29)
[2021-03-04 22:00] VITALS: PULSE 68; RESP 16; O2SAT 94
[2021-03-04] MEDS: 0.9% Saline Lock 10 ML Syringe IV (22:01)
[2021-03-04 22:05] VITALS: BMI 22.3
--- NOTE | 2021-03-04 22:50 | NURSING ---
Pt claiming to see 3 cats in room mating. Pt claims that the SHARPS CONTAINER is a black, big cat that has two heads. Staff tries to redirect pt but pt can be heard meowing when staff leaves the room and calling the cats to Come here, kitties!
[2021-03-05] MEDS: oxyCODONE 5 MG Tablet PO ×3 (04:19→19:05)
[2021-03-05] MEDS: Enoxaparin 40 MG/0.4 ML Syringe SC (06:31)
[2021-03-05] MEDS: Acetaminophen 500 MG Tablet 1000 MG PO ×3 (06:33→20:37)
[2021-03-05 07:24] VITALS: O2SAT 94
[2021-03-05] MEDS: Paroxetine 20 MG Tablet 30 MG PO (08:11)
[2021-03-05] MEDS: busPIRone 5 MG Tablet PO ×2 (08:11→20:37)
[2021-03-05] MEDS: Propranolol 40 MG Tablet PO (08:12)
[2021-03-05] MEDS: Aspirin E.C. 81 MG Tablet PO (08:12)
[2021-03-05] MEDS: amLODIPine 10 MG Tablet PO (08:12)
[2021-03-05 08:28] VITALS: BP 146/58; PULSE 56; RESP 16; TEMP 36.4; O2SAT 95
[2021-03-05] MEDS: Multivitamins,Therapeutic Tablet 1 TABLET PO (11:15)
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
--- NOTE | 2021-03-05 11:43 | REHABEVAL_ITS ---
Admission Information Primary Diagnosis:: Physical debility secondary to a fall resulting in a left intertrochanteric hip fracture Actual Problem List:: Pain, ALteration in Cmfrt, Depression, Bladder Incontinence, Alteration in Sleep, Mobility Impaired, Know.Dfct/Disease Process, Fluid Change-Dehydration and Alteration-Leisure Activ. Potential Problem List:: DVT, Bleeding, Infection, UTI, Aspiration, Falls, Skin Integrity and Depression Risk of Complications DVT: LMWH and JACOB Hose Bleeding: Monitor Lab Values, Nursing to Teach Precautions for anti-coagulation therapy., Wound, if applicable, to be assessed every shift. and Stroke patients assessed for lethargy or change in status. Infection: Clinical Staff to Monitor for S/S of infection: and S/S of infection include fever, redness, warmth, etc. Urinary Tract Infection: Monitor for frequency, burning, discomfort, or incontinence. and Nursing will obtain urine sample for urinalysis and C&S when ordered. Aspiration: Clinical staff will monitor for coughing, drooling, congestion., Speech will evaluate swallowing and dsyphasia. and Nursing will monitor patient swallowing during meals. Falls: Patient will be evaluated for Fall Precautions and Patient will be placed on Fall Precautions as indicated per protocol. Skin Breakdown: Nursing will assess skin daily using assessment tool. and Nursing will place on Skin Breakdown Precautions as indicated. Pain: Clinical staff will assess patient's pain level per protocol., Medications will be given, if needed, and the pain level reassessed. and Other methods: Massage, distraction, decrease stimulus, etc. used PRN. Plan of Care Patient requires physician specializing in physical medicine and rehab oversight to provide close medical supervision of rehab issues including: Pain Management, Sleep Problems, Bowel and Bladder, Medical and co-morbidity Management, DVT prophylaxis, Rehabilitation Leadership and Coordination of treatment team Patient needs Physical Therapy: For a minimum of 1 hour and At least 5 out of 7 days Patient needs Physical Therapy to improve:: Mobility, Strengthening, Transfers, Stretching, ROM, Endurance, Stairs, Gait and Balance Patient needs Occupational Therapy: For a minimum of 1 hour and At least 5 out of 7 days Patient needs Occupational Therapy to improve ADL's incl.: Eating, Grooming, Ba thing, Dressing, Toileting, Toilet transfers, Community Reintegration, Higher functioning activities, Household tasks, Adaptive Equipment, Splinting and Other activities as determined Patient requires 24/ Rehabilitation Nursing for: Pain Issues, Identifying and preventing risk factors, Monitoring and reporting current medical conditions, Assisting with ambulation, transfer, and all ADL's, Teaching patients about disease process and medications, Family teaching, Providing safe environment, Bowel and Bladder Issues, Skin integrity and Medication Management Patient needs General Education Instructor/ Case Management for: Discharge Planning, Arranging Home Equipment or Services and Family Interventions Patient needs Dietary and Nutrition Services for: Adequate Nutrition, Nutritional Supplements and Nutritional Education Goals Patient will remain: free from falls and or injury at time of discharge. Patient will perform bed mobility at: MOD I level of assist. Patient will complete transfers from bed to chair at: MOD I level of assist. Patient will ambulate: 100 feet and with LRD Patient will complete upper body dressing at: MOD I level of assist. Patient will complete lower body dressing at: MOD I level of assist. Patient will complete toileting at: MOD I level of assist. Patient will perform bathing at: MOD I level of assist. Patient will complete grooming at: MOD I level of assist. Patient will complete home management skills at: MOD I level of assist. Patient will achieve: - (1 curb step) Patient will have pain level of: of 3 or less Patient's skin will: remain intact Patient will receive: adequate nutrition. Discharge Planning Estimated Length of stay (days): 14 Anticipated D/C Destination: TBD Was Preadmission Assessment Accurate?: Yes
[2021-03-05 14:26] LABS: Bacteria 0 SEEN /hpf (None Seen); Mucous, Urine 0 SEEN /hpf (<or=2+); Red Blood Cells-Urine 0 SEEN /hpf (0-5)
[2021-03-05 14:27] VITALS: BMI 22.3
[2021-03-05 14:30] LABS: Color, Urine Yellow (Yellow); Glucose, Dipstick Normal (Normal); Ketone-Dipstick Negative (Negative); Leukocyte Esterase-Dipstick 25 /ul (Negative); Nitrite-Dipstick Negative (Negative); Occult Blood-Urine Negative /ul (Negative); Protein-Dipstick 30 mg/dl (Negative); Urine Bilirubin Dipstick Negative (Negative); Urine Clarity Clear (Clear); Urine Urobilinogen Normal (Normal); Urine pH 6.5 (5.0 - 8.0)
[2021-03-05 14:39] LABS: Squamous Epithelial Cells - UA 0-5 SEEN /hpf (0-5); White Blood Cells 0-5 SEEN /hpf (0-5)
[2021-03-05 19:51] VITALS: BP 127/55; PULSE 50; RESP 16; TEMP 36.6; O2SAT 98
[2021-03-05] MEDS: Atorvastatin Calcium 40 MG Tablet PO (20:37)
[2021-03-05] MEDS: Senna/Docusate Sodium 1 Tablet 2 TABLET PO (20:38)
[2021-03-05] MEDS: MELATONIN 3 MG TABLET PO (20:38)
[2021-03-05 22:00] VITALS: RESP 16
[2021-03-06] MEDS: oxyCODONE 5 MG Tablet PO ×3 (01:07→15:13)
[2021-03-06] MEDS: Enoxaparin 40 MG/0.4 ML Syringe SC (06:06)
[2021-03-06] MEDS: Acetaminophen 500 MG Tablet 1000 MG PO ×3 (06:06→21:50)
[2021-03-06 07:33] VITALS: BP 127/57; PULSE 50; RESP 16; TEMP 36.2; O2SAT 97
[2021-03-06] MEDS: amLODIPine 10 MG Tablet PO (08:46)
[2021-03-06] MEDS: Senna/Docusate Sodium 1 Tablet 2 TABLET PO ×2 (08:46→21:51)
[2021-03-06] MEDS: Propranolol 40 MG Tablet PO (08:47)
[2021-03-06] MEDS: Aspirin E.C. 81 MG Tablet PO (08:47)
[2021-03-06] MEDS: Paroxetine 20 MG Tablet 30 MG PO (08:47)
[2021-03-06] MEDS: busPIRone 5 MG Tablet PO ×2 (08:47→21:50)
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
--- NOTE | 2021-03-06 11:36 | PN_ITS ---
Progress Note Afebrile VSS - HR has been down to 50. He is on Propanolol which is a non cardioselective BB. This can cause confusion in the elderly and he is already confused from dementia. Will convert to a cardioselective BB (Coreg) Maintaining appropriate oxygen saturation on RA Oral intake is poor Discussed with nursing -He continues to see cats which are not there. He is not agitated and is redirectable. Reviewed the PT/OT notes - he is sometimes refusing to do therapy when the therapist wants him to but, later is agreeable. Medication list reviewed. He denies CP, SOB, lightheadedness. He is c/o back pain. 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 Still with pressured speech and flight of ideas. Very talkative and can not stay on topic. He makes good eye contact. He was awake most of the night after 12.5 mg of seroquel. Physical Exam Const alert and oriented x3 General Appearance: cooperative Resp normal respiratory effort and clear to auscultation bilaterally Effort and Inspection: able to speak in complete sentences Cardio regular rate, regular rhythm, no murmurs and no gallops GI normal to inspection, nondistended, normoactive bowel sounds and soft to palpation Extremity no calf tenderness and no pedal edema Skin Rashes: no rashes Neuro oriented x3, CN's II-XII intact bilaterally, moves all extremities and no focal motor deficits Psych Psych Narrative: auditory and visual hallucinations. He is not on an anti- psychotic. He is on Buspar and Paxil. No tremors Assessment & Plan Assessment/Plan (1) Physical debility: (2) Fall: QUALIFIERS: Encounter type: initial encounter Qualified Code(s): W19.XXXA - Unspecified fall, initial encounter (3) Closed fracture of left hip: QUALIFIERS: Encounter type: initial encounter Qualified Code(s): S72.002A - Fracture of unspecified part of neck of left femur, initial encounter for closed fracture (4) History of open reduction and internal fixation (ORIF) procedure: (5) Auditory hallucinations: (6) Visual hallucinations: (7) Insomnia: QUALIFIERS: Insomnia type: due to other mental disorder Qualified Code(s): F51.05 - Insomnia due to other mental disorder; F99 - Mental disorder, not otherwise specified (8) Weakness: (9) Dementia: QUALIFIERS: Dementia type: unspecified type (10) Depression: QUALIFIERS: Depression Type: unspecified Qualified Code(s): F32.A - Depression, unspecified PLAN: 1. Need more hx - will call [facility] tomorrow to see if they have any information on the psychiatric disorder he has. Has he ever been to the counselling center? What is his normal behavior. 2. Seroquel BID and PRN Haldol if any agitation or aggressive behavior 3. Decrease the Paxil to 20 mg - he could be bipolar and be in a manic phase. 4. D/W the SW - He seems like he needs more care than he gets at assisted living. She is going [facility]. 5. Recheck lab in the AM Visit Charges Inpatient E&M: 41343 Subs Hosp L2
[2021-03-06] MEDS: Multivitamins,Therapeutic Tablet 1 TABLET PO (12:24)
[2021-03-06 13:05] VITALS: BMI 22.3
--- NOTE | 2021-03-06 16:35 | CHAPLAIN ---
Type of Pastoral Visit _x__ Initial Visit ___ Follow-up Visit ___ On-call Visit ___ General Patient Visit ___ Spiritual Assessment ___ Family Conference ___ Bereavement ___ Rapid Response ___ Code Blue ___ Other (describe below) Pastoral Care Referral From _x__ Patient ___ Family ___ Nurse ___ Physician ___ Aws Architect ___ Political Anthropologist ___ Other (describe below) Sacrament/Intervention _x__ Active listening ___ Anointing ___ Anglican ___ Bereavement ___ Communion ___ Cathleen exploration ___ _x__ Life review _x__ Prayer ___ Reconciliation ___ Sacrament of Sick _x__ Supportive presence ___ Wedding ___ Other (describe below) Pastoral Comments patient was awake and when introduced to this movie operator he said he was expecting this visit and immediately began to ask questions about his health, desire for a wheelchair or scooter, etc.; after explanation of who can help with these questions pt began to talk about his life, his cat, and some of his experiences; pt 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
--- NOTE | 2021-03-06 16:42 | CASEMGMT ---
Social Work Left message with LEANA Srivastava 03/05 - awaiting return phone call to discuss appropriateness to return to [facility] and electric w/c. Palliative Screening Tool completed. Pt meets criteria. Referral made to [facility]. Will continue to follow. Sabra Mendes, KAYAKING INSTRUCTOR PUBLIC INFORMATION RELATIONS MANAGER
[2021-03-06 21:35] VITALS: BP 135/59; PULSE 53; RESP 18; TEMP 36.6; O2SAT 97; BMI 22.3
[2021-03-06] MEDS: Atorvastatin Calcium 40 MG Tablet PO (21:50)
[2021-03-06] MEDS: MELATONIN 3 MG TABLET PO (21:51)
[2021-03-06] MEDS: QUEtiapine 25 MG Tablet 12.5 MG PO (21:51)
--- NOTE | 2021-03-07 02:57 | NURSING ---
Reviewed DIESEL LOCOMOTIVE FIRER/FIREMAN and agree with DIESEL LOCOMOTIVE FIRER/FIREMAN assessment.
[2021-03-07] MEDS: Enoxaparin 40 MG/0.4 ML Syringe SC (06:39)
[2021-03-07] MEDS: Acetaminophen 500 MG Tablet 1000 MG PO ×3 (06:40→20:18)
[2021-03-07] MEDS: Alendronate Sodium 70 MG Tablet PO (06:41)
[2021-03-07] MEDS: oxyCODONE 5 MG Tablet PO ×3 (08:04→20:51)
[2021-03-07] MEDS: Paroxetine 20 MG Tablet 30 MG PO (08:04)
[2021-03-07] MEDS: busPIRone 5 MG Tablet PO ×2 (08:06→20:20)
[2021-03-07] MEDS: Aspirin E.C. 81 MG Tablet PO (08:08)
[2021-03-07] MEDS: amLODIPine 10 MG Tablet PO (08:08)
[2021-03-07] MEDS: Carvedilol 6.25 MG Tablet PO ×2 (08:08→20:19)
[2021-03-07] MEDS: Senna/Docusate Sodium 1 Tablet 2 TABLET PO ×2 (08:08→20:19)
[2021-03-07 09:12] VITALS: BP 97/66; PULSE 91; RESP 16; TEMP 36.7; O2SAT 99
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
[2021-03-07] MEDS: Multivitamins,Therapeutic Tablet 1 TABLET PO (12:18)
[2021-03-07] MEDS: Magnesium Hydroxide 30 ML UDC PO (13:59)
[2021-03-07] MEDS: Bisacodyl 10 MG Suppository RC (15:02)
--- NOTE | 2021-03-07 16:27 | CASEMGMT ---
Social Work IDT met with patient for Team meeting. Discussed patient's progress in therapy and nursing. Explained Medicare approved 14 days with EDC 03/19. IDT discussed pt's psych issues and recommending possible geripsych placement to assist with hallucinations, behaviors and medication adjustment. IDT concerned with return to [facility] as pt was admitted to hospital with reported dried feces on his hands, under his fingernails and feet. SW received return voicemail from - returned call, left voicemail. SW to referral made to [facility]. Consulted Lead SW on pt's admitting condition. Agreed for this worker to make referral to [facility]. Spoke with intake for Karin at [facility]. SW to continue to follow. JHONATAN BurtonW
--- NOTE | 2021-03-07 16:54 | CON.PCM.PA_ITS ---
Assessment & Plan Assessment/Plan (1) Constipation: QUALIFIERS: Constipation type: unspecified constipation type Qualified Code(s): K59.00 - Constipation, unspecified (2) Weakness: (3) Visual hallucinations: (4) History of open reduction and internal fixation (ORIF) procedure: (5) Closed fracture of left hip: QUALIFIERS: Encounter type: initial encounter Qualified Code(s): S72.002A - Fracture of unspecified part of neck of left femur, initial encounter for closed fracture (6) Fall: QUALIFIERS: Encounter type: initial encounter Qualified Code(s): W19.XXXA - Unspecified fall, initial encounter (7) Hypocalcemia: PLAN: 75-year-old male seen today for palliative consultation, recent hip fracture with repair and ongoing hallucinations. 1. Constipation: Meds recently adjusted, he was given a Dulcolax suppository today. MiraLAX will be started this evening. He is also on Carleen-Colace 2 tabs twice daily. Could increase Carleen-Colace, or add mag citrate 2. Weakness and debility: Related to his recent hip fracture. He is getting rehab. 3. Visual hallucinations: He is less agitated on Seroquel. Attending is titrating this. There is a consult for Abigail psych placement at [facility]. I will defer management to them. 4. Hip fracture/fall/hypokalemia: Complicates overall care and management. We will follow up with the patient in a couple of weeks after discharge. He has a caregiver, Carola Broussard. He tells me he has no family that comes to see him. He does not have decisional capacity at this point. Thank you for the opportunity to participate in this patient's care, please do not hesitate to contact [facility] with any further questions or concerns. Palliative direct line is [phone]. We will follow up after discharge and will discuss palliative services further at that time. We will need to investigate further if he has an appointed guardian or power of consumer attorney. Greater than 50% of F2F visit dedicated to education and counseling of palliative care services, medications, comorbid conditions and potential assistance with management, and plan of care moving forward. Start time: 1653 End time: 1744 HPI Consult Data Date of Consult: 03/07/21 HPI Narrative HPI Narrative: BERTRAND CONTE, is a 75 M, PMH as below, who presented to [facility] ED 03/01/2021 with complaints of left hip pain, found to have an acute nondisplaced fracture of the intertrochanteric left femur with avulsion of the greater trochanter. He underwent surgery 03/02. He ended up developing acute renal failure, which resolved while in the hospital. He was then transferred to the rehab unit for further therapy. Palliative was consulted utilizing the screening tool, which was positive for functional decline in the setting of dementia and hip fracture, as well as renal disease. He also has uncontrolled constipation. Patient not sleeping well, he is hallucinating. Not really agitated but is seeing cats in his room and thinks staff members are kittens as well. Oral intake is poor. He does have a history of dementia with behavioral disturbances. Currently lives in assisted living, however it is unclear if it will be safe for him to return there by himself. Patient has a history of chronic pain and follows with Dr. Miller for pain management. He receives epidural steroid injections periodically. He also takes as needed Tylenol for pain. Since being on rehab, his beta-bryan was adjusted and pain has been fairly well controlled with Tylenol 1 g every 8 hours scheduled and oxycodone 5 mg every 4 hours as needed, which was increased in frequency from every 6 hours 03/06. Patient is constipated. He is complaining of significant cramping and pressure in his rectum. He is sitting on a bedpan as we speak. Currently on Carleen-Colace 2 tablets twice daily, as needed Dulcolax suppository which was given today, and milk of mag. He is having hip pain, but abdomen hurting more than anything right now. Passing gas. No nausea or vomiting. Denies any dizziness or syncope. Rating pain moderate to the hip, nursing reports patient complains of pain only when he is moving. He is participating in therapy. [facility] Medical History Anxiety Back pain CKD (chronic kidney disease) Delusional disorder Dementia Depression High cholesterol HTN (hypertension) Insomnia Muscle weakness Osteoarthritis Renal disease Smoker Stroke/cerebrovascular accident Uses wheelchair Home Medications alendronate 70 mg PO TH 11/23/20 [History Last Taken 02/28/21] amlodipine [Norvasc] 10 mg PO DAILY 11/23/20 [History Last Taken 03/01/21] buspirone 5 mg PO BID 11/23/20 [History Last Taken 03/01/21] paroxetine HCl 30 mg PO DAILY 11/23/20 [History Last Taken 03/01/21] propranolol 40 mg PO DAILY 11/23/20 [History Last Taken 03/01/21] rosuvastatin 20 mg PO QHS 11/23/20 [History Last Taken 03/01/21] aspirin 81 mg PO DAILY 03/01/21 [History Last Taken 03/01/21] multivitamin [Daily-Jerry] 1 tab PO DAILY 03/01/21 [History Last Taken 03/01/21] oxycodone-acetaminophen [Percocet] 1 tab PO Q6H PRN 7 Days #28 tab 03/03/21 [Rx Last Taken Unknown] acetaminophen 1,000 mg PO Q8 03/04/21 [History Last Taken Unknown] enoxaparin 40 mg SUBCUT DAILY@0600 03/04/21 [History Last Taken Unknown] melatonin 3 mg PO QHS 03/04/21 [History Last Taken Unknown] Allergy/AdvReac Type Severity Reaction Status Date / Time No Known Allergies Allergy Verified 03/01/21 17:06 Family History Mother Cancer Father Cancer Surgical History History of open reduction and internal fixation (ORIF) procedure S/P appendectomy Social History housing: assisted living facility Smoking Status: Current every day smoker tobacco type: cigarettes alcohol intake: never substance use type: does not use ROS ROS Narrative Review of systems otherwise negative from a constitutional, HEENT, respiratory, cardiovascular, GI, genitourinary, musculoskeletal, skin, neurologic, psychiatric and hematologic system unless stated above. Physical Exam Const alert and no apparent distress General Appearance: cooperative HEENT normocephalic and head/scalp atraumatic Neck supple General: trachea midline Resp normal respiratory effort Effort and Inspection: able to speak in complete sentences and symmetric chest movement Auscultation: clear to auscultation bilaterally and diminished lung sounds Cardio regular rate, regular rhythm, S1 normal heart sound and S2 normal heart sound GI non-tender GI Narrative: Soft Inspection: abdominal distention Skin Skin Narrative: Left hip incision Neuro moves all extremities Neuro Narrative: Left-sided weakness from prior stroke. Did not observe gait Psych cooperative Attitude: calm Speech: normal speech Thought Content: hallucination(s) Attention / Concentration: attention grossly intact
[2021-03-07 17:00] VITALS: BMI 22.3
[2021-03-07 19:35] VITALS: BP 132/53; PULSE 72; RESP 18; TEMP 36.6; O2SAT 96
[2021-03-07] MEDS: QUEtiapine 25 MG Tablet PO (20:18)
[2021-03-07] MEDS: Atorvastatin Calcium 40 MG Tablet PO (20:19)
[2021-03-07] MEDS: MELATONIN 3 MG TABLET PO (20:19)
[2021-03-07] MEDS: Menthol/Lanolin/Calamine/Znox 113 GM Tube 1 APPLIC TOPICAL (20:26)
[2021-03-07] MEDS: 0.9% Saline Lock 10 ML Syringe IV (20:52)
[2021-03-08 06:01] LABS: Absolute Lymphocyte Count 2.28 X10^3/uL (0.83-4.51); Absolute Neutrophil Count 6.3 X10^3/uL (2.0-7.7); Basophil# 0.08 X10^3/uL; Basophil% 0.8 % (0-1); Eosinophil# 0.25 X10^3/uL; Eosinophils% 2.6 % (0-5); Hematocrit 30.7 % (40-54); Hemoglobin 9.9 g/dL (13.0-16.5); Lymphocyte # 2.28 X10^3/ul (0.83-4.51); Lymphocyte % 23.6 % (19-41); Mean Corp Hgb Conc 32.2 g/dL (32-36); Mean Corpuscular Hgb 29.9 pg (27.0-32.0); Mean Corpuscular Volume 92.7 fL (80-94); Mean Platelet Vol. 10.1 fl (6.2-12.0); Monocyte# 0.75 X10^3/uL; Monocyte% 7.7 % (0-10); NRBC Flagged by Analyzer 0 % (0-5); Neutrophil # 6.25 X10^3/uL (2.7-7.7); Neutrophil % 64.6 % (47-70); Platelet Count 344 K/mm3 (150-450); RBC Distribution Width CV 13.5 % (11.6-14.6); RBC Distribution Width SD 45.8 fl (35.1-43.9); Red Blood Count 3.31 M/mm3 (4.6-6.2); White Blood Count 9.7 K/mm3 (4.4-11.0)
[2021-03-08] MEDS: Menthol/Lanolin/Calamine/Znox 113 GM Tube 1 APPLIC TOPICAL ×2 (06:10→20:14)
[2021-03-08] MEDS: Enoxaparin 40 MG/0.4 ML Syringe SC (06:10)
[2021-03-08 06:22] LABS: Albumin, Serum 2.6 g/dL (3.2-5.0); Anion Gap 8 (5-15); BUN 22 mg/dL (7-18); BUN/Creat Ratio 19.1 RATIO (10-20); Calcium,Total 8.5 mg/dL (8.5-10.1); Chloride 104 mmol/L (98-107); Creatinine, Serum 1.15 mg/dL (0.70-1.30); EST Glomerular Filtration Rate 66 mL/min (>60); Est Glom Filt Rate - Afr Amer 79 mL/min (>60); Estimated Creatinine Clearance 57.37 ml/min; Glucose 143 mg/dL (74-106); Potassium 3.7 mmol/L (3.5-5.1); Sodium Level 137 mmol/L (136-145)
[2021-03-08] MEDS: Acetaminophen 500 MG Tablet 1000 MG PO ×3 (06:24→20:17)
[2021-03-08 07:35] LABS: Vitamin D,25 Hydroxy 36.1 ng/mL
[2021-03-08 08:30] VITALS: BP 143/48; PULSE 57; RESP 16; TEMP 36.8; O2SAT 97
[2021-03-08] MEDS: oxyCODONE 5 MG Tablet PO ×2 (08:32→18:04)
[2021-03-08] MEDS: Carvedilol 6.25 MG Tablet PO ×2 (08:32→20:15)
[2021-03-08] MEDS: Polyethylene Glycol 3350 17 GM PACKET PO (08:33)
[2021-03-08] MEDS: Senna/Docusate Sodium 1 Tablet 2 TABLET PO ×2 (08:35→20:16)
[2021-03-08] MEDS: busPIRone 5 MG Tablet PO ×2 (08:36→20:14)
[2021-03-08] MEDS: Aspirin E.C. 81 MG Tablet PO (08:36)
[2021-03-08] MEDS: QUEtiapine 25 MG Tablet PO ×2 (08:38→20:14)
[2021-03-08] MEDS: amLODIPine 10 MG Tablet PO (08:39)
[2021-03-08] MEDS: Paroxetine 20 MG Tablet PO (08:42)
--- NOTE | 2021-03-08 11:40 | CASEMGMT ---
Addendum entered by Sabra Mendes 03/08/21 15:20: Spoke with Carola and gathered more detailed information. CM has not met the patient in person d/t JUANITO, but does have contact and access to records of his from [facility]. Pt is managed by Taryn Jorge Dr. In notes from 2018, there were dx given reflecting pt's psych status and hallucinations. However, it was not documented that pt has been seen and managed by a psychologist or psychiatrist. Pt has seen set up with [facility], but no appt has been obtained/visit completed. It is reported to CM from [facility] that pt signs himself out of [facility] daily, goes to a friends house, is gone all day, then comes back in the evening inebriated by alcohol and drugs, causing the staff to provide total care for the pt, and unable to safely administer pt's evening medications. The only information given from [facility] to [facility] CM had some concerns about two months ago and called the [facility], but no changes have been made. CM questioned guardianship to [facility], but was advised pt can still make his own decisions whether good or bad. Explained SW called [facility] yesterday as well. Explained Dr. Cano feels pt is unfit to make his own decisions at this time and is recommending guardianship. CM offered to contact [facility] again and discuss concerns/guardianship. Discussed possibilities of pt not returning to [facility], to look into [facility] or if [place] is no longer the level of care pt needs, and recommending SNF placement. CM agrees. Explained Medicare approved coverage until 03/19. Contacted [facility] - they have beds available in [place] and SNF do have psych services that could be provided to pt. Referral sent. Updated Dr. Cano and RN. Advised RN to ensure documentation be completed these next few days to describe pt's condition if the medication changes are helping or hurting. IDT to [facility] Thursday, and see if pt still needs geripsych. SW can refer to other facilities as well. SW to continue to follow. Original Note: Social Work Followed up with Alena, ana at [facility]. Telecommunications Support spoke with RN last night for hand off and their Dr. felt pt did not enough needs, pt could still be delirious from post-op and did not meet criteria, but provided verbal medication adjustments. RN relayed recommendations to Dr. Cano. Alena apologized, but willing to update their next week if pt hasn't resolved. Left another message with Carola Petersen. HEMALATHA will continue to follow. Sabra Mendes, RUSSIAN HISTORY PROFESSOR PHARMACOVIGILANCE SPECIALIST
--- NOTE | 2021-03-08 13:54 | PCM.PN.BLA ---
Progress Note Afebrile VSS - no more HR's of 50 with the change in the beta bryan to Coreg. BP is stable. Maintaining appropriate oxygen saturation on RA Fluid intake is poor Discussed with nursing - He is still seeing cats in his room. Not agitated. Has not needed any Haldol. Reviewed the PT/OT notes. OT tells me that Duane is very drowsy this morning. Duane told me that he slept well last night and thanked me for the sleeping pill. Medication list reviewed. All labs personally reviewed. The hemoglobin is 9.9, down from 13.21 05/02/2021. White blood cell count is within normal limits and the platelets are also within normal limits. The differential is unremarkable. The BUN is 22 with a creatinine of 1.15 which is down from 1.61 at admission to the hospital. Fasting glucose this morning is 143. Albumin is low at 2.6 and the corrected calcium is within normal limits. Serotonin level is pending. Vitamin D level is within normal limits at 36. Duane has no complaints today. Physical Exam Const Constitutional Narrative: drowsy does not appear t6o be in any distress. His speech is not currently pressured. HEENT normocephalic Resp clear to auscultation bilaterally Cardio regular rate, regular rhythm, no murmurs and no gallops GI normal to inspection, nondistended, normoactive bowel sounds and soft to palpation Extremity no calf tenderness Assessment & Plan Assessment/Plan (1) Insomnia: QUALIFIERS: Insomnia type: due to other mental disorder Qualified Code(s): F51.05 - Insomnia due to other mental disorder; F99 - Mental disorder, not otherwise specified (2) Physical debility: (3) Visual hallucinations: (4) Auditory hallucinations: (5) History of open reduction and internal fixation (ORIF) procedure: (6) Closed fracture of left hip: QUALIFIERS: Encounter type: initial encounter Qualified Code(s): S72.002A - Fracture of unspecified part of neck of left femur, initial encounter for closed fracture (7) Fall: QUALIFIERS: Encounter type: initial encounter Qualified Code(s): W19.XXXA - Unspecified fall, initial encounter (8) Acute blood loss anemia: PLAN: He finally slept with Seroquel 25 mg last night. The drowsiness today may be due to sleep deprivation for the past few days or to the dose of Seroquel this AM. Will re-evauate in the AM. He does not get the Seroquel until 10 AM - if he is alert prior to 10 AM but drowsy after will decrease the dose of the AM Seroquel to 12.5 mg. Continue the Paxil at 20 mg daily. Await the result of the serotonin level. The RN called [facility] and he has been there about a year. Prior to that they think he lived at a long term. He has not been to the counselling center although he has been scheduled to be seen. He leaves the building daily and when he comes back he often looks intoxicated so he may in fct be using cannabis to get high. The hallucinations he is having are not scary. He likes cats and dogs and he likes to think the cats are sent by god to look over him and this makes him feel grateful and loved. Will continue the current dose of Seroquel and allow a few days for him to catch up on his sleep. If he remains drowsy in the morning decrease the AM dose. RN has requested progress notes from the Nurse Practitioner who sees Duane monthly. Continue therapy. Visit Charges Inpatient E&M: 48757 Subs Hosp L2
[2021-03-08] MEDS: Multivitamins,Therapeutic Tablet 1 TABLET PO (13:56)
[2021-03-08 14:37] LABS: Erythrocyte Sedimentation Rate 34 mm/hr (0-20)
[2021-03-08 14:45] LABS: Vitamin B12 421 pg/mL (211-911)
[2021-03-08 15:06] LABS: Hemoglobin A1c 5.4 % (3.8-5.6)
[2021-03-08 15:34] VITALS: BMI 22.3
[2021-03-08 20:04] VITALS: BP 128/55; PULSE 69; RESP 18; TEMP 36.8; O2SAT 95
[2021-03-08] MEDS: MELATONIN 3 MG TABLET PO (20:15)
[2021-03-08] MEDS: Atorvastatin Calcium 40 MG Tablet PO (20:16)
--- NOTE | 2021-03-09 02:29 | NURSING ---
Review and agree with ETL APPLICATION DEVELOPER assessment.
[2021-03-09] MEDS: Acetaminophen 500 MG Tablet 1000 MG PO ×3 (05:04→20:34)
[2021-03-09] MEDS: oxyCODONE 5 MG Tablet PO ×2 (05:04→15:40)
[2021-03-09] MEDS: Menthol/Lanolin/Calamine/Znox 113 GM Tube 1 APPLIC TOPICAL (05:07)
[2021-03-09] MEDS: Enoxaparin 40 MG/0.4 ML Syringe SC (05:07)
[2021-03-09 07:43] LABS: Amphetamine Urine VISTA NEGATIVE (<1000 ng/mL); Barbiturate Urine VISTA NEGATIVE (< 200 ng/mL); Benzodiazepine Urine VISTA NEGATIVE (< 200 ng/mL); Cocaine Urine VISTA NEGATIVE (< 300 ng/mL); Ecstacy Urine VISTA NEGATIVE (< 500 ng/mL); Methadone Urine VISTA NEGATIVE (< 300 ng/mL); PCP Urine VISTA NEGATIVE (< 25 ng/mL); THC Urine VISTA POSITIVE (< 50 ng/mL); Vista UDS pH Range 6
[2021-03-09] MEDS: Polyethylene Glycol 3350 17 GM PACKET PO (07:52)
[2021-03-09] MEDS: Senna/Docusate Sodium 1 Tablet 2 TABLET PO ×2 (07:52→20:33)
[2021-03-09] MEDS: Aspirin E.C. 81 MG Tablet PO (07:52)
[2021-03-09] MEDS: amLODIPine 10 MG Tablet PO (07:52)
[2021-03-09] MEDS: Carvedilol 6.25 MG Tablet PO ×2 (07:52→20:36)
[2021-03-09] MEDS: Paroxetine 20 MG Tablet PO (07:55)
[2021-03-09] MEDS: busPIRone 5 MG Tablet PO ×2 (07:55→20:36)
[2021-03-09 08:22] VITALS: BP 145/57; PULSE 71; RESP 16; TEMP 36.7; O2SAT 94
[2021-03-09] MEDS: QUEtiapine 25 MG Tablet PO ×2 (09:00→20:36)
[2021-03-09] MEDS: Multivitamins,Therapeutic Tablet 1 TABLET PO (10:59)
[2021-03-09 17:00] VITALS: BMI 22.3
[2021-03-09 19:18] VITALS: BP 141/51; PULSE 72; RESP 14; TEMP 36.8; O2SAT 98
[2021-03-09] MEDS: Atorvastatin Calcium 40 MG Tablet PO (20:36)
[2021-03-09] MEDS: MELATONIN 3 MG TABLET PO (20:37)
[2021-03-10 00:08] VITALS: BMI 22.3
[2021-03-10] MEDS: Acetaminophen 500 MG Tablet 1000 MG PO ×3 (05:34→21:00)
[2021-03-10] MEDS: Enoxaparin 40 MG/0.4 ML Syringe SC (05:34)
[2021-03-10 07:07] VITALS: BP 122/58; PULSE 62; RESP 16; TEMP 35.8; O2SAT 96
[2021-03-10] MEDS: Carvedilol 6.25 MG Tablet PO ×2 (08:47→20:22)
[2021-03-10] MEDS: Polyethylene Glycol 3350 17 GM PACKET PO (08:47)
[2021-03-10] MEDS: QUEtiapine 25 MG Tablet PO ×2 (08:47→20:22)
[2021-03-10] MEDS: oxyCODONE 5 MG Tablet PO ×2 (08:47→14:58)
[2021-03-10] MEDS: Magnesium Hydroxide 30 ML UDC PO (08:47)
[2021-03-10] MEDS: amLODIPine 10 MG Tablet PO (08:48)
[2021-03-10] MEDS: Paroxetine 20 MG Tablet PO (08:48)
[2021-03-10] MEDS: busPIRone 5 MG Tablet PO ×2 (08:51→20:22)
[2021-03-10] MEDS: Aspirin E.C. 81 MG Tablet PO (08:51)
[2021-03-10 10:22] VITALS: BMI 22.3
[2021-03-10] MEDS: Multivitamins,Therapeutic Tablet 1 TABLET PO (12:01)
[2021-03-10] MEDS: Senna/Docusate Sodium 1 Tablet 2 TABLET PO ×2 (12:02→20:21)
[2021-03-10 20:20] VITALS: BP 135/76; PULSE 61; RESP 16; TEMP 36.9; O2SAT 97
[2021-03-10] MEDS: MELATONIN 3 MG TABLET PO (20:21)
[2021-03-10] MEDS: Menthol/Lanolin/Calamine/Znox 113 GM Tube 1 APPLIC TOPICAL (20:22)
[2021-03-10] MEDS: Atorvastatin Calcium 40 MG Tablet PO (20:22)
[2021-03-11] MEDS: Enoxaparin 40 MG/0.4 ML Syringe SC (05:54)
[2021-03-11] MEDS: Menthol/Lanolin/Calamine/Znox 113 GM Tube 1 APPLIC TOPICAL ×2 (05:54→20:13)
[2021-03-11] MEDS: Acetaminophen 500 MG Tablet 1000 MG PO ×3 (05:54→20:11)
[2021-03-11 07:36] VITALS: BP 128/49; PULSE 61; RESP 16; TEMP 37.2; O2SAT 94
[2021-03-11] MEDS: Aspirin E.C. 81 MG Tablet PO (07:57)
[2021-03-11] MEDS: amLODIPine 10 MG Tablet PO (07:57)
[2021-03-11] MEDS: Paroxetine 20 MG Tablet PO (07:57)
[2021-03-11] MEDS: Carvedilol 6.25 MG Tablet PO ×2 (07:59→20:12)
[2021-03-11] MEDS: busPIRone 5 MG Tablet PO ×2 (08:00→20:12)
[2021-03-11] MEDS: QUEtiapine 25 MG Tablet PO ×2 (08:50→20:12)
[2021-03-11] MEDS: oxyCODONE 5 MG Tablet PO ×2 (08:51→14:47)
--- NOTE | 2021-03-11 09:30 | CASEMGMT ---
Addendum entered by Sabra Mendes 03/11/21 14:34: Guardianship paperwork completed. Dk Silver denied for [place] and SNF. Discussed pt's behaviors with and currently pt has improved with medication adjustments. Recommending SNF placement. SW to continue to follow. Original Note: Social Work Provided physician with expert evaluation and emergency guardianship forms. SW to continue to assist in application process. Sabra Mendes, BUTTON SEWER REEFER ENGINEER
--- NOTE | 2021-03-11 09:31 | PCM.PN.BLA ---
Progress Note Afebrile VSS-blood pressure is well controlled. Heart rate is within normal limits. Maintaining appropriate oxygen saturation on RA Oral intake is erratic. He took 1600 p.o. on 03/09/2021 and yesterday only took 960. Still incontinent of urine at times. Having regular bowel movements. Discussed with nursing - no problems that need addressed. He is sleeping well. Hallucinations are decreasing. He is no longer asking nurses to leave food to feed the cat. He now questions whether there is a cat laying on the sharps container. Reviewed the PT/OT notes Medication list reviewed. All lab was personally reviewed. Last lab was on 03/08/2021. The hemoglobin is 9.9 which is down from 13.1 prior to surgery. White blood cell count is within normal limits with an unremarkable differentiation. Platelets are normal. Potassium is normal. Sodium is normal. The BUN was 22 with a creatinine of 1.15. Fasting blood sugar on Thursday was 143. Hemoglobin A1c is within normal limits. Serotonin level is still pending. B12 and vitamin D are within normal limits. TSH is normal. Urine drug screen was positive for cannabinoids and opiates however he is getting oxycodone. Physical Exam Const alert and oriented x3 General Appearance: cooperative Resp Resp Narrative: Diminished but clear to auscultation. Able to speak in complete sentences Cardio regular rate, regular rhythm and no gallops GI normal to inspection, nondistended, normoactive bowel sounds, soft to palpation and non-tender Extremity no calf tenderness and no pedal edema Psych Psych Narrative: Anxious and tearful. Perseverates on getting home to his cat. Assessment & Plan Assessment/Plan (1) Psychosis: (2) Depression: QUALIFIERS: Depression Type: unspecified Qualified Code(s): F32.A - Depression, unspecified (3) Physical debility: (4) Auditory hallucinations: (5) Visual hallucinations: (6) History of open reduction and internal fixation (ORIF) procedure: PLAN: 1. discussed with the SW. I do not feel this pt is capable of managing his finances and medications and I do not feel he is safe in his current place of residence because he is not being supervised. Will petition for him to have a guardian appointed to make medical and financial decisions for him. 2. He needs to follow up with psychiatry post DC 3. continue the Seroquel and adjust dosage to decrease hallucinations. Hx is difficult to obtain from Duane due to the flight of ideas, easy distractability and inability to answer some direct questions. He denies ETOH use but he has admitted at one time to smoking crack behind the building and at other times he denies ever doing this. He freely admits to smoking joints with his friends but, he can not name these friends. 4. Continue PT/OT for fracture of the L hip. Visit Charges Inpatient E&M: 84509 Subs Hosp L2
[2021-03-11] MEDS: Multivitamins,Therapeutic Tablet 1 TABLET PO (11:27)
[2021-03-11 12:55] VITALS: BMI 22.3
[2021-03-11 15:07] LABS: ANTINUCLEAR ANTIBODIES DIRECT Positive (Negative); Anti-Centromere B Ab <0.2 AI (0.0-0.9); Anti-Chromatin <0.2 AI (0.0-0.9); Anti-Jo <0.2 AI (0.0-0.9); Anti-Scleroderma-70 AB <0.2 AI (0.0-0.9); RNP Ab 2.7 AI (0.0-0.9); SJOGREN'S Anti-SS-A test < 0.2 AI (0.0-0.9); SJOGREN'S Anti-SS-B test < 0.2 AI (0.0-0.9); Smith Ab <0.2 AI (0.0-0.9)
[2021-03-11 20:00] VITALS: BP 151/53; PULSE 66; RESP 18; TEMP 36.9; O2SAT 95; BMI 22.3
[2021-03-11] MEDS: Senna/Docusate Sodium 1 Tablet 2 TABLET PO (20:11)
[2021-03-11] MEDS: Atorvastatin Calcium 40 MG Tablet PO (20:12)
[2021-03-11] MEDS: MELATONIN 3 MG TABLET PO (20:12)
[2021-03-12] MEDS: Enoxaparin 40 MG/0.4 ML Syringe SC (06:16)
[2021-03-12] MEDS: Acetaminophen 500 MG Tablet 1000 MG PO ×3 (06:17→20:28)
[2021-03-12] MEDS: Menthol/Lanolin/Calamine/Znox 113 GM Tube 1 APPLIC TOPICAL ×2 (06:40→20:37)
--- NOTE | 2021-03-12 06:45 | NURSING ---
staff came in to start adls and pt declined stating that he would later. staff checked pt attends and pt is noted to be incontinent of bowel and bladder, pt had used the urinal as well. pt stated that he did not sleep well last night, reporting that he had some pain in his legs. pt did not call staff for any assistance for pain medication or changing attends. pt was resting with eyes closed during rounds and voiced no needs.
[2021-03-12 07:30] VITALS: BP 152/57; PULSE 62; RESP 18; TEMP 36.7; O2SAT 98
[2021-03-12] MEDS: Carvedilol 6.25 MG Tablet PO ×2 (08:54→20:29)
[2021-03-12] MEDS: QUEtiapine 25 MG Tablet PO ×2 (08:54→20:29)
[2021-03-12] MEDS: Aspirin E.C. 81 MG Tablet PO (08:54)
[2021-03-12] MEDS: busPIRone 5 MG Tablet PO ×2 (08:54→20:29)
[2021-03-12] MEDS: Paroxetine 20 MG Tablet PO (08:55)
[2021-03-12] MEDS: amLODIPine 10 MG Tablet PO (08:55)
[2021-03-12] MEDS: oxyCODONE 5 MG Tablet PO ×3 (08:58→18:13)
--- NOTE | 2021-03-12 10:40 | CASEMGMT ---
Addendum entered by Sabra Mendes 03/12/21 15:41: Left message with CM updating on status Original Note: Social Work Dropped off guardianship paperwork to Probate Court. Will continue to follow. JHONATAN BurtonW
[2021-03-12] MEDS: Multivitamins,Therapeutic Tablet 1 TABLET PO (12:04)
[2021-03-12 12:06] VITALS: BMI 22.3
[2021-03-12] MEDS: Senna/Docusate Sodium 1 Tablet 2 TABLET PO (20:28)
[2021-03-12] MEDS: Atorvastatin Calcium 40 MG Tablet PO (20:29)
[2021-03-12] MEDS: MELATONIN 3 MG TABLET PO (20:29)
[2021-03-12 22:01] VITALS: BP 126/47; PULSE 62; RESP 16; TEMP 36.3; O2SAT 96
[2021-03-13 01:01] VITALS: BMI 22.3
[2021-03-13] MEDS: Acetaminophen 500 MG Tablet 1000 MG PO ×3 (05:08→20:49)
[2021-03-13] MEDS: Enoxaparin 40 MG/0.4 ML Syringe SC (05:09)
[2021-03-13] MEDS: Menthol/Lanolin/Calamine/Znox 113 GM Tube 1 APPLIC TOPICAL ×2 (05:09→20:15)
[2021-03-13 07:29] VITALS: BP 113/54; PULSE 64; RESP 16; TEMP 37.1; O2SAT 98
[2021-03-13] MEDS: busPIRone 5 MG Tablet PO ×2 (09:03→20:14)
[2021-03-13] MEDS: amLODIPine 10 MG Tablet PO (09:03)
[2021-03-13] MEDS: Senna/Docusate Sodium 1 Tablet 2 TABLET PO ×2 (09:03→20:15)
[2021-03-13] MEDS: QUEtiapine 25 MG Tablet PO ×2 (09:03→20:14)
[2021-03-13] MEDS: Carvedilol 6.25 MG Tablet PO ×2 (09:03→20:14)
[2021-03-13] MEDS: Paroxetine 20 MG Tablet PO (09:03)
[2021-03-13] MEDS: Aspirin E.C. 81 MG Tablet PO (09:03)
[2021-03-13] MEDS: oxyCODONE 5 MG Tablet PO (10:16)
[2021-03-13] MEDS: Multivitamins,Therapeutic Tablet 1 TABLET PO (12:14)
--- NOTE | 2021-03-13 12:39 | CASEMGMT ---
Addendum entered by Sabar Mendes 03/14/21 09:49: Spoke with [address] Photoengraving Retoucher, and she will be in to serve pt. Notified nursing. Addendum entered by Sabra Mendes 03/13/21 14:52: Spoke with Attorney Ordonez. She gave permission to refer to any SNFs in [facility]. She did confirm that court certified vehicle fire investigator will visit pt, explain guardianship and notify of hearing. Will begin making referrals and keep Cold Patcherradha Ordonez updated. Original Note: Social Work Received fax from [facility] [address] with court order appointing Cold Patcheranton Ordonez as emergency guardian for 72 hours with a hearing scheduled 03/15 at 9 am on whether to expand the guardianship order for 30 days. Received voicemail from Cold Patcherradha Ordonez inquiring about duties at the present time and to receive further detailed information on pt. Returned phone call stating this worker just needs direction on SNF referrals/placement as DC is scheduled for 03/19. Will await return phone call to further discuss. JHONATAN Burton
[2021-03-13 15:01] LABS: Anti-dsDNA Ab 5 IU/mL (0-9)
[2021-03-13 15:40] VITALS: BMI 22.3
[2021-03-13 19:30] VITALS: BP 140/57; PULSE 69; RESP 16; TEMP 36.8; O2SAT 97
[2021-03-13] MEDS: MELATONIN 3 MG TABLET PO (20:14)
[2021-03-13] MEDS: Atorvastatin Calcium 40 MG Tablet PO (20:15)
[2021-03-14 02:08] VITALS: BMI 22.3
[2021-03-14] MEDS: Acetaminophen 500 MG Tablet 1000 MG PO ×3 (06:44→20:23)
[2021-03-14] MEDS: Alendronate Sodium 70 MG Tablet PO (06:44)
[2021-03-14] MEDS: Enoxaparin 40 MG/0.4 ML Syringe SC (06:44)
[2021-03-14] MEDS: Menthol/Lanolin/Calamine/Znox 113 GM Tube 1 APPLIC TOPICAL ×2 (06:45→20:24)
[2021-03-14 07:40] VITALS: BP 140/72; PULSE 62; RESP 18; TEMP 36.7; O2SAT 96
[2021-03-14] MEDS: Carvedilol 6.25 MG Tablet PO ×2 (08:45→20:24)
[2021-03-14] MEDS: busPIRone 5 MG Tablet PO ×2 (08:45→20:25)
[2021-03-14] MEDS: Paroxetine 20 MG Tablet PO (08:46)
[2021-03-14] MEDS: Aspirin E.C. 81 MG Tablet PO (08:46)
[2021-03-14] MEDS: QUEtiapine 25 MG Tablet PO (08:46)
[2021-03-14] MEDS: amLODIPine 10 MG Tablet PO (08:46)
[2021-03-14] MEDS: Senna/Docusate Sodium 1 Tablet 2 TABLET PO ×2 (08:46→20:23)
[2021-03-14] MEDS: Multivitamins,Therapeutic Tablet 1 TABLET PO (11:46)
[2021-03-14] MEDS: oxyCODONE 5 MG Tablet PO (14:21)
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
[2021-03-14 15:46] VITALS: BMI 22.3
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
[2021-03-14 19:41] VITALS: BP 131/55; PULSE 61; RESP 18; TEMP 36.6; O2SAT 97
[2021-03-14] MEDS: MELATONIN 3 MG TABLET PO (20:24)
[2021-03-14] MEDS: Atorvastatin Calcium 40 MG Tablet PO (20:24)
[2021-03-14] MEDS: QUEtiapine 25 MG Tablet 37.5 MG PO (20:25)
[2021-03-15 05:00] VITALS: BMI 22.3
[2021-03-15 05:37] LABS: Hematocrit 31.2 % (40-54); Hemoglobin 9.9 g/dL (13.0-16.5); Mean Corp Hgb Conc 31.7 g/dL (32-36); Mean Corpuscular Hgb 29.7 pg (27.0-32.0); Mean Corpuscular Volume 93.7 fL (80-94); Mean Platelet Vol. 9.3 fl (6.2-12.0); Platelet Count 444 K/mm3 (150-450); RBC Distribution Width CV 13.9 % (11.6-14.6); RBC Distribution Width SD 47.2 fl (35.1-43.9); Red Blood Count 3.33 M/mm3 (4.6-6.2); White Blood Count 9.1 K/mm3 (4.4-11.0)
[2021-03-15] MEDS: Enoxaparin 40 MG/0.4 ML Syringe SC (05:55)
[2021-03-15] MEDS: busPIRone 5 MG Tablet PO ×3 (05:56→20:38)
[2021-03-15] MEDS: Menthol/Lanolin/Calamine/Znox 113 GM Tube 1 APPLIC TOPICAL ×2 (05:56→20:37)
[2021-03-15] MEDS: Acetaminophen 500 MG Tablet 1000 MG PO ×3 (05:56→20:36)
[2021-03-15 06:07] LABS: Anion Gap 7 (5-15); BUN 28 mg/dL (7-18); BUN/Creat Ratio 24.3 RATIO (10-20); Calcium,Total 8.4 mg/dL (8.5-10.1); Chloride 105 mmol/L (98-107); Creatinine, Serum 1.15 mg/dL (0.70-1.30); EST Glomerular Filtration Rate 66 mL/min (>60); Est Glom Filt Rate - Afr Amer 79 mL/min (>60); Estimated Creatinine Clearance 55.62 ml/min; Glucose 98 mg/dL (74-106); Potassium 4.1 mmol/L (3.5-5.1); Sodium Level 136 mmol/L (136-145)
[2021-03-15 07:37] VITALS: BP 148/58; PULSE 61; RESP 16; TEMP 36.8; O2SAT 97
[2021-03-15] MEDS: Senna/Docusate Sodium 1 Tablet 2 TABLET PO ×2 (08:38→20:36)
[2021-03-15] MEDS: Polyethylene Glycol 3350 17 GM PACKET PO (08:38)
[2021-03-15] MEDS: Aspirin E.C. 81 MG Tablet PO (08:38)
[2021-03-15] MEDS: Carvedilol 6.25 MG Tablet PO ×2 (08:39→20:37)
[2021-03-15] MEDS: amLODIPine 10 MG Tablet PO (08:39)
[2021-03-15] MEDS: Paroxetine 20 MG Tablet PO (08:39)
--- NOTE | 2021-03-15 10:00 | CASEMGMT ---
Social Work Received call from Insurance Claims Examiner Megha Ordonez. Megha advised the Court granted an extension for 30 days for emergency guardian and she will file to become permanent guardian of pt. She will fax over official documents and to be placed in pt's chart. Megha prefers pt DC to [facility]. She expressed appreciation for assistance and resources. Contacted [facility] and [facility]. Contacted [facility] to confirm acceptance on 03/19. Pt will admit skilled. Scheduled w/c transport through [facility]. Also scheduled w/c transport through [facility] for [facility]s appt at [facility] 03/20. Notified Pall[facility] of DC date. Notified Carola DUEÑAS of DC plan. Plan: DC to [facility] skilled 03/19 JHONATAN Burton INSPECTOR REPAIRER SANDSTONE
[2021-03-15] MEDS: QUEtiapine 25 MG Tablet PO (10:52)
[2021-03-15] MEDS: oxyCODONE 5 MG Tablet PO (11:22)
[2021-03-15] MEDS: Multivitamins,Therapeutic Tablet 1 TABLET PO (11:23)
--- NOTE | 2021-03-15 13:31 | PCM.PN.BLA ---
Progress Note Afebrile VSS Maintaining appropriate oxygen saturation on RA Oral intake is erratic Discussed with nursing - no problems that need addressed. He slept well last night and he is cooperative. Reviewed the PT/OT/ST notes Medication list reviewed. All lab was personally reviewed. The BUN is elevated at 28 and the creatinine is stable at 1.15. Potassium and sodium are within normal limits. He denies lightheadedness. He is alert and cooperative with me today. I spoke with the SW and the court appointed a temporary guardian for the next 30 days. He will be going to [place] this coming Thursday. Physical Exam Const alert and oriented x3 Constitutional Narrative: Tearful at times. General Appearance: cooperative and well developed HEENT normocephalic and head/scalp atraumatic Eyes PERRL, EOMs intact bilaterally, conjunctivae normal and no scleral icterus Eyes Narrative: He has gaze preference to the R but has no visual field cuts. EOMI Resp normal respiratory effort, no use of accessory muscles and clear to auscultation bilaterally Resp Narrative: Diminished but clear to auscultation. Able to speak in complete sentences Effort and Inspection: able to speak in complete sentences Cardio regular rate, regular rhythm, S1 normal heart sound, S2 normal heart sound, no murmurs, no rub and no gallops GI normal to inspection, nondistended, normoactive bowel sounds, soft to palpation and non-tender GI Narrative: No guarding with palpation. Extremity no clubbing, cyanosis or edema, no calf tenderness and no pedal edema Extremity Narrative: JACOB hose are in place Skin Skin Narrative: No rashes, no skin breakdown. Rashes: no rashes Neuro oriented x3, CN's II-XII intact bilaterally, moves all extremities and no focal motor deficits Motor Exam: strength 5/5 throughout Psych cooperative Psych Narrative: Anxious and tearful. Perseverates on getting home to his cat. He is pleasant today. Activity / Motor Behavior: appropriate eye contact Mood & Affect: depressed Thought Process: disorganized, confabulating, flight of ideas and perseverating Assessment & Plan Assessment/Plan (1) Closed left femoral fracture: (2) History of open reduction and internal fixation (ORIF) procedure: (3) Acute blood loss anemia: (4) Psychosis: (5) Auditory hallucinations: (6) Visual hallucinations: PLAN: 1. Continue therapy 2. continue the current dose of Seroquel. The serotonin level is still pending. Keep the Paxil at 20 mg daily 3. Plan DC to [place] next Thursday. 4. Encouraged him to increase his fluid intake. Visit Charges Inpatient E&M: 84802 Subs Hosp L2
[2021-03-15 15:26] VITALS: BMI 22.3
[2021-03-15 19:25] VITALS: BP 108/52; PULSE 66; RESP 18; TEMP 36.6; O2SAT 97
[2021-03-15] MEDS: QUEtiapine 25 MG Tablet 37.5 MG PO (20:35)
[2021-03-15] MEDS: MELATONIN 3 MG TABLET PO (20:36)
[2021-03-15] MEDS: Atorvastatin Calcium 40 MG Tablet PO (20:36)
[2021-03-15 22:57] LABS: Serotonin, Serum 9 ng/mL (21-321)
[2021-03-16] MEDS: Enoxaparin 40 MG/0.4 ML Syringe SC (05:27)
[2021-03-16] MEDS: Acetaminophen 500 MG Tablet 1000 MG PO ×3 (05:27→20:30)
[2021-03-16] MEDS: Menthol/Lanolin/Calamine/Znox 113 GM Tube 1 APPLIC TOPICAL ×2 (05:28→20:29)
[2021-03-16] MEDS: busPIRone 5 MG Tablet PO ×3 (05:28→20:28)
[2021-03-16 07:39] VITALS: BP 131/60; PULSE 58; RESP 12; TEMP 36.7; O2SAT 98
[2021-03-16] MEDS: QUEtiapine 25 MG Tablet PO (08:29)
[2021-03-16] MEDS: Aspirin E.C. 81 MG Tablet PO (08:29)
[2021-03-16] MEDS: amLODIPine 10 MG Tablet PO (08:29)
[2021-03-16] MEDS: Carvedilol 6.25 MG Tablet PO ×2 (08:29→20:29)
[2021-03-16] MEDS: Paroxetine 20 MG Tablet PO (08:29)
[2021-03-16] MEDS: Senna/Docusate Sodium 1 Tablet 2 TABLET PO (08:30)
[2021-03-16] MEDS: Polyethylene Glycol 3350 17 GM PACKET PO (08:30)
--- NOTE | 2021-03-16 11:15 | NURSING ---
pt up to br and thought sharps container was cat for banquet server when was up.
[2021-03-16] MEDS: oxyCODONE 5 MG Tablet PO (13:11)
--- NOTE | 2021-03-16 13:14 | NURSING ---
pt called out with call light asking for pain pill and nerve pill when nurse went in pt asking are you my nurse? despite taking care of him all shift so far. pt wanting nerve pill because im leaving here tues and i get to see my cat. hes 7mos old and probably misses me terribly pa on for saftey. oxy given for pain in hip and salazar at this time.
[2021-03-16] MEDS: Multivitamins,Therapeutic Tablet 1 TABLET PO (14:06)
--- NOTE | 2021-03-16 14:39 | NURSING ---
pt called out and stated, i had a court case i was supposed to be at this am and was wondering if you heard anything. pt also asked if mail ran yet because she said i was supposed to be getting the check unable to bring pt to see that wasnt real. unsure if related to oxycodone as was doing behavior prior to
[2021-03-16 15:27] VITALS: BMI 22.3
[2021-03-16 19:30] VITALS: BP 118/46; PULSE 57; RESP 16; TEMP 36.7; O2SAT 97
[2021-03-16] MEDS: QUEtiapine 25 MG Tablet 37.5 MG PO (19:53)
[2021-03-16] MEDS: MELATONIN 3 MG TABLET PO (20:30)
[2021-03-16] MEDS: Atorvastatin Calcium 40 MG Tablet PO (20:30)
[2021-03-17 01:07] VITALS: BMI 22.3
[2021-03-17] MEDS: Enoxaparin 40 MG/0.4 ML Syringe SC (06:38)
[2021-03-17] MEDS: Menthol/Lanolin/Calamine/Znox 113 GM Tube 1 APPLIC TOPICAL ×2 (06:38→20:51)
[2021-03-17] MEDS: Acetaminophen 500 MG Tablet 1000 MG PO ×3 (06:38→20:44)
[2021-03-17] MEDS: busPIRone 5 MG Tablet PO ×3 (06:38→20:43)
[2021-03-17] MEDS: QUEtiapine 25 MG Tablet PO (08:37)
[2021-03-17] MEDS: Multivitamins,Therapeutic Tablet 1 TABLET PO (08:37)
[2021-03-17] MEDS: Polyethylene Glycol 3350 17 GM PACKET PO (08:38)
[2021-03-17] MEDS: amLODIPine 10 MG Tablet PO (08:38)
[2021-03-17] MEDS: Aspirin E.C. 81 MG Tablet PO (08:38)
[2021-03-17] MEDS: Paroxetine 20 MG Tablet PO (08:38)
[2021-03-17] MEDS: Carvedilol 6.25 MG Tablet PO ×2 (08:38→20:43)
[2021-03-17 09:17] VITALS: BP 124/53; PULSE 58; RESP 18; TEMP 36.6; O2SAT 97
[2021-03-17 13:40] VITALS: BMI 22.3
[2021-03-17 19:30] VITALS: BP 112/46; PULSE 61; RESP 16; TEMP 36.5; O2SAT 95
[2021-03-17] MEDS: QUEtiapine 25 MG Tablet 37.5 MG PO (20:42)
[2021-03-17] MEDS: MELATONIN 3 MG TABLET PO (20:44)
[2021-03-17] MEDS: Atorvastatin Calcium 40 MG Tablet PO (20:44)
[2021-03-18 00:07] VITALS: BMI 22.3
[2021-03-18] MEDS: Enoxaparin 40 MG/0.4 ML Syringe SC (06:03)
[2021-03-18] MEDS: Acetaminophen 500 MG Tablet 1000 MG PO ×3 (06:04→19:53)
[2021-03-18] MEDS: busPIRone 5 MG Tablet PO ×3 (06:04→20:02)
[2021-03-18] MEDS: Menthol/Lanolin/Calamine/Znox 113 GM Tube 1 APPLIC TOPICAL ×2 (06:04→20:02)
[2021-03-18 07:41] VITALS: BP 123/60; PULSE 57; RESP 16; TEMP 37.1; O2SAT 99
[2021-03-18] MEDS: Aspirin E.C. 81 MG Tablet PO (08:15)
[2021-03-18] MEDS: QUEtiapine 25 MG Tablet PO (08:15)
[2021-03-18] MEDS: Paroxetine 20 MG Tablet PO (08:15)
[2021-03-18] MEDS: Carvedilol 6.25 MG Tablet PO ×2 (08:15→19:54)
[2021-03-18] MEDS: amLODIPine 10 MG Tablet PO (08:16)
--- NOTE | 2021-03-18 11:34 | TREXTCAR_ITS ---
Diet 03/04/21 17:49 Diet: Regular - General Food consistency:: Regular Liquid Consistency:: Regular/Thin Type of Dietary Supplement:: Magic Cup Dessert Diet Comments: Magic Cup BID w/ lunch and dinner Routine Orders/Code Status Enema Type: Fleetz Enema Frequency: Daily PRN Suppository Type: Dulcolax 10mg Suppository Frequency: Daily PRN O2 Liters per Minute: 1-2 O2 Frequency: PRN Keep PO Greater than or Equal to (%): 90 Routine Lab Work: CBC (03/22/21) and BMP (03/22/21) Code Status: Full Code Wound(s) LEFT HIP: Wound Type: Surgical Incision Therapies Weight Bearing: Weight bearing as tolerated Extremity Affected:: Left Lower Physical Therapy: Eval and Treat Occupational Therapy: Eval and Treat Problem/Diagnosis (1) Closed left femoral fracture: Status: Acute (2) History of open reduction and internal fixation (ORIF) procedure: Status: Acute (3) Acute blood loss anemia: Status: Acute (4) Psychosis: Status: Acute (5) Auditory hallucinations: Status: Acute (6) Visual hallucinations: Status: Acute Allergies/Procedures Done in Hospital Allergies No Known Allergies Allergy (Verified 03/01/21 17:06) Procedures: None Type of Care/Length of Stay Estimated LOS: More Than 30 Days Type of Care Needed: Skilled Rehab Potential: Good Prognosis: Good Additional Orders/Day of Discharge H&P will serve as current which was dated: 03/05/21 Day of Discharge: 03/19/21 Dietary and Speech Recommendations Dietitian Recommendations/Changes: Will continue Regular Diet and Ensure Enlive w/ medpass as ordered. Will add Magic Cup BID w/ lunch and dinner for tolerance. Will continue to trend weights closely; adjust ONS as needed to optimize intake and prevent further wt loss. Follow Up Care Please Follow Up With: Johnson Tovar DO When: Thursday Discharge Plan Admission Admit Date/Time: 03/04/21 16:40 Primary Reason for Your Visit: Debility secondary to left femur fracture sustained in a fall. Attending Provider: Elaine Cano Consulting Providers: Fabiola Martin ; Xavier Virgen ; Charissa Mijares ; Ivanna Canseco ; Adrianna Dial ; Trini Pierce PRECISION DEVICES INSPECTOR/TESTER Discharge Orders/Prescriptions Prescriptions: New atorvastatin 40 mg Tablet 40 mg PO QHS Qty: 0 RF: 0 buspirone 5 mg Tablet 5 mg PO TID Qty: 1 RF: 0 oxycodone 5 mg Tablet 5 mg PO Q4H PRN (Reason: Pain Score 1-10) 7 Days Qty: 20 RF: 0 bisacodyl 10 mg Suppository 10 mg NC .PRN X 1 PRN (Reason: Constipation) Qty: 1 RF: 0 carvedilol 6.25 mg Tablet 6.25 mg PO BID Qty: 1 RF: 0 magnesium hydroxide 400 mg/5 mL Suspension 30 ml PO .PRN X 1 PRN (Reason: Constipation) Qty: 355 RF: 0 menthol-zinc oxide [Calmoseptine] 0.44-20.6 % Ointment 1 applic topical BID@0600,2200 Qty: 0 RF: 0 nicotine 21 mg/24 hr Patch 24 Hour 21 mg transdermal DAILY Qty: 7 RF: 0 quetiapine 25 mg Tablet 25 mg PO 0900 Qty: 0 RF: 0 quetiapine 25 mg Tablet 37.5 mg PO 2000 Qty: 0 RF: 0 sennosides-docusate sodium [Stool Softener-Stimulant Laxat] 8.6-50 mg Tablet 2 tab PO BID Qty: 0 RF: 0 Continued alendronate 70 mg Tablet 70 mg PO TH RF: 0 amlodipine [Norvasc] 10 mg Tablet 10 mg PO DAILY RF: 0 paroxetine HCl 30 mg Tablet 30 mg PO DAILY RF: 0 multivitamin [Daily-Jerry] Tablet 1 tab PO DAILY RF: 0 aspirin 81 mg tablet,delayed release (DR/EC) 81 mg PO DAILY RF: 0 melatonin 3 mg Tablet 3 mg PO QHS RF: 0 enoxaparin 40 mg/0.4 mL syringe 40 mg subcut DAILY@0600 12 Days Qty: 0 RF: 0 Changed acetaminophen 500 mg Tablet 1,000 mg PO Q8H PRN PRN (Reason: fever or pain) Qty: 1 RF: 0 Discontinued buspirone 5 mg Tablet 5 mg PO BID RF: 0 propranolol 40 mg Tablet 40 mg PO DAILY RF: 0 rosuvastatin 20 mg Tablet 20 mg PO QHS RF: 0 oxycodone-acetaminophen [Percocet] 5-325 mg tablet 1 tab PO Q6H PRN (Reason: pain) 7 Days Qty: 28 RF: 0 Referrals / Follow Up: MANDI GORDON [Other] Disposition Disposition (needs filled in before D/C Order can be placed): [facility] Facility
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
[2021-03-18] MEDS: Multivitamins,Therapeutic Tablet 1 TABLET PO (12:20)
--- NOTE | 2021-03-18 15:31 | PN_ITS ---
Progress Note Afebrile VSS - BP is WNL Maintaining appropriate oxygen saturation on RA Oral intake is poor. He is anxious over being discharged tomorrow and he wants his cat to accompany him to [facility]. Unfortunately the only SNF that allows pets has been sited multiple times in the past year for different problems and they have had 4 different directors in the past year. The guardian did not approve for him to go to [facility] and he will be going to [facility]. Discussed with nursing - no problems that need addressed Reviewed the PT/OT/ST notes Medication list reviewed. Duane denies N/V/abd pain, CP, SOB, lightheadedness, palpitations, dysuria, calf pain, constipation, diarrhea. His bowels are regular now. He is sleeping well at night. Physical Exam Const alert, oriented x3 and no apparent distress Constitutional Narrative: He is mostly lying in bed when he is not doing therapy. He does not get up in the recliner at the bedside very often. He is polite and appropriate when I am talking with him today and he is making good eye contact. General Appearance: cooperative HEENT HEENT Narrative: He is hard of hearing and he reads lips. He does not have his hearing aids with him. He tells me he does not like to wear them because he hears alot of noise that he does not hear when he does not have the aids in. I reinforced with him the need to wear the hearing aids when he is interacting with people so that he accurately hears what is being said to him and can respond intelligently/appropriately so that he does not seem confused. Head and Scalp: normocephalic Mouth: dry mucous membranes and No malodorous breath Eyes PERRL, EOMs intact bilaterally, conjunctivae normal and no scleral icterus Neck no lymphadenopathy and supple Resp normal respiratory effort and clear to auscultation bilaterally Resp Narrative: BS's are diminished but respirations are not labored, he is not tachypneic even with exertion, no accessory muscle use. Effort and Inspection: able to speak in complete sentences Cardio regular rate, regular rhythm, no murmurs and no gallops GI normal to inspection, nondistended, normoactive bowel sounds, soft to palpation and non-tender Extremity normal capillary refill, no calf tenderness and no pedal edema Skin Rashes: no rashes Psych cooperative, activity/motor behavior normal, denies homicidal ideation and denies suicidal ideation Psych Narrative: His speech was very pressured at admission and he had flight of ideas. He was seeing cats and dogs and reptiles in his room. He is no longer having visual hallucinations but, he is still telling me that his cat talks. He does not say she meows, he states she speaks and tells him I love you Duane. He is able to stay on topic now and ask appropriate questions. Speech is no longer pressured. Appearance: appropriate Attitude: calm Activity / Motor Behavior: appropriate eye contact; Negative for psychomotor agitation, psychomotor slowing or fidgetting Speech: normal speech Assessment & Plan Assessment/Plan (1) Physical debility: PLAN: He has been very cooperative with therapy. He is going to be transferred to [facility] tomorrow for additional therapy and will remain there because he is not able to care for himself and has been making some pretty poor decisions. A temporary guardian has been appointed by the court. (2) Fall: PLAN: Tripped over his cat and broke the femur and did not go to the hospital for 4 days, until he could no longer bear weight. (3) Closed left femoral fracture: (4) History of open reduction and internal fixation (ORIF) procedure: (5) Psychosis: PLAN: I do not know the cause of the psychosis. He will be seen by psych services at [facility]. He has improved significantly now that he is taking Paxil. The serotonin level was low on 03/08/21 at 9 and he had been taking 30 mg daily since admission to the hospital on 03/01/21. I suspect he was not taking it as an OP. The hallucinations are much better and he no longer has pressurized speech since the Seroquel was initiated and adjusted to gain good control over his symptoms. He is no longer restless and he has been cooperating and not refusing therapy any longer. He is able to stay on topic when I speak with him. He still maintains that he has THC in his urine because he went to a wedding and everyone was smoking pot and he got a contact high. This does not explain why it is still in his urine weeks later. He also still maintain that his cat talks, not meows, talks in [place]. I do not think that Duane recognizes what is reality and what is a delusion or a hallucination. I hope that psych services at [facility] can make a diagnosis as to the etiology of the psychosis and correctional counselor/case manager him. At this time I do not feel that he is competent to care for himself and he needs supervision to be compliant with his medications. (6) Auditory hallucinations: (7) Visual hallucinations: (8) Anxiety: PLAN: Continue the Buspar....has been increased to 5 mg TID and he has had no adverse side effects. If he continues to be anxious after transfer to [facility] the dose could be increased if needed. (9) Depression: QUALIFIERS: Depression Type: unspecified Qualified Code(s): F32.A - Depression, unspecified PLAN: Continue Paxil at 20 mg daily for now. If in late March he is still depressed would consider increasing the dose of The Paxil to 30 mg. Visit Charges Inpatient E&M: 29464 Subs Hosp L2
[2021-03-18 15:47] VITALS: BMI 22.3
--- NOTE | 2021-03-18 15:56 | CASEMGMT ---
Social Work Received paperwork from Probate Court that Hotel Baggage Handler Megha José Luis has been appointed guardian of estate and person until 04/14/21. Paperwork placed in chart. provided paperwork to Evelin, along with JATIN info, and PASRR. PAS triggered for Level II evaluation. Will await outcome. Sabra Mendes, JHONATAN ANDRESW
[2021-03-18] MEDS: QUEtiapine 25 MG Tablet 37.5 MG PO (19:43)
[2021-03-18] MEDS: MELATONIN 3 MG TABLET PO (19:53)
[2021-03-18] MEDS: Atorvastatin Calcium 40 MG Tablet PO (19:54)
[2021-03-18 22:00] VITALS: BP 122/62; PULSE 65; RESP 14; TEMP 36.8; O2SAT 96
[2021-03-19] MEDS: Acetaminophen 500 MG Tablet 1000 MG PO ×2 (05:33→12:41)
[2021-03-19] MEDS: busPIRone 5 MG Tablet PO ×2 (05:33→12:42)
[2021-03-19] MEDS: Enoxaparin 40 MG/0.4 ML Syringe SC (05:33)
[2021-03-19] MEDS: Menthol/Lanolin/Calamine/Znox 113 GM Tube 1 APPLIC TOPICAL (05:34)
[2021-03-19 07:30] VITALS: BP 135/87; PULSE 62; RESP 16; TEMP 36.3; O2SAT 96
[2021-03-19] MEDS: QUEtiapine 25 MG Tablet PO (10:11)
[2021-03-19] MEDS: Aspirin E.C. 81 MG Tablet PO (10:11)
[2021-03-19] MEDS: Carvedilol 6.25 MG Tablet PO (10:11)
[2021-03-19] MEDS: ALPRAZolam 0.25 MG Tablet 0.125 MG PO (10:12)
[2021-03-19] MEDS: amLODIPine 10 MG Tablet PO (10:13)
[2021-03-19] MEDS: Paroxetine 20 MG Tablet PO (10:13)
[2021-03-19] MEDS: Multivitamins,Therapeutic Tablet 1 TABLET PO (12:42)
[2021-03-19 13:01] VITALS: BP 135/87; PULSE 62; RESP 16; TEMP 36.3; O2SAT 96
[2021-03-19 13:02] VITALS: BMI 22.3
--- NOTE | 2021-03-19 13:03 | NURSING ---
Discharged [facility] [place] [facility]. report called to [facility]
== END 2021-03-19 13:03 | disposition skilled nursing facility (03) | DRG 560 ==
PROVIDERS: Admitting Provider Internal Medicine; Visit Provider Internal Medicine
DX: S72.115D Nondisplaced fracture of greater trochanter of left femur, subsequent encounter for closed fracture with routine healing (principal); F03.91 Unspecified dementia, unspecified severity, with behavioral disturbance; I69.354 Hemiplegia and hemiparesis following cerebral infarction affecting left non-dominant side; D62 Acute posthemorrhagic anemia; I12.9 Hypertensive chronic kidney disease with stage 1 through stage 4 chronic kidney disease, or unspecified chronic kidney disease; N18.2 Chronic kidney disease, stage 2 (mild); M19.90 Unspecified osteoarthritis, unspecified site; W01.0XXD Fall on same level from slipping, tripping and stumbling without subsequent striking against object, subsequent encounter; M81.0 Age-related osteoporosis without current pathological fracture; E78.5 Hyperlipidemia, unspecified; F32.A Depression, unspecified; F41.9 Anxiety disorder, unspecified; G89.29 Other chronic pain; R25.1 Tremor, unspecified; F17.210 Nicotine dependence, cigarettes, uncomplicated; E83.51 Hypocalcemia; Z79.899 Other long term (current) drug therapy; Z79.82 Long term (current) use of aspirin
CPT/HCPCS: 36415; 80048; 80307; 81001; 82040; 82274; 82306; 82607; 83036; 84260; 85025; 85027; 85652; 86038; 86225; 86235; 87426; 92507; 96125; 97110; 97162; 97167; 97530; 97535; 97802; 97803; 99251; 99406; A4216; G0463